=== PATIENT | male | born 1935 | race Hispanic/Latino ===

== ENCOUNTER 2017-07-17 21:16 | Emergency (ER) | payer MEDICARE, BC ==
--- NOTE | 2017-07-17 21:32 | C.PDOC ---
History Of Present Illness 82 y/o male brought in by ambulance for evaluation of head injury, sustained just prior to arrival. Patient was walking rapidly on the street, tripped and fell, striking his head and wounding his chin and knuckles. He denies any LOC, or dizziness prior to episode. Patient states he remembers the entire event. Denies any chest pain, SOB, nausea, vomiting, weakness, numbness, or visual changes. - HPI Time Seen by Provider: 07/17/17 21:32 Chief Complaint (Nursing): Trauma History Per: Patient History/Exam Limitations: no limitations Onset/Duration Of Symptoms: Mins Injury Occurred (Timing): Just Before Arrival Location Of Injury: Right: Hand, Left: Chest (small ecchimosis left chest wall) , Head (forehead lac, chin laceration), Shoulder, Anterior: Face (forehead, chin ), Hand Severity: Moderate Pain Scale Rating Of: 4 Recent travel outside of the [facility]: No Additional History Per: EMS - Fall Fall:Prior To Injury: Tripped Past Medical History Reviewed: Historical Data, Nursing Documentation, Vital Signs Vital Signs: Last Vital Signs Temp 98.5 F 07/17/17 21:28 Pulse 83 07/18/17 01:04 Resp 18 07/18/17 01:04 BP 140/67 07/18/17 01:04 Pulse Ox 99 07/18/17 01:55 - Medical History PMH: HTN, Hypercholesterolemia Other PMH: Prostate cancer Other Surgeries: Left arm surgery Family History: States: No Known Family Hx Review Of Systems Eyes: Negative for: Vision Change ENT: Positive for: Nose Pain Cardiovascular: Negative for: Chest Pain, Palpitations, Light Headedness Respiratory: Negative for: Shortness of Breath Gastrointestinal: Negative for: Nausea, Vomiting Genitourinary: Negative for: Hematuria Skin: Positive for: Lesions (to head), Bruising Neurological: Negative for: Weakness, Numbness, Confusion, Dizziness Psych: Negative for: Anxiety, Depression Physical Exam - Physical Exam Appears: Non-toxic Skin: Warm, Dry, Rash, Ecchymosis (left cheek) Head: Normacephalic, Swelling, Laceration (1.5 cm laceration to left forehead, 1.5 cm superficial semicircular laceration to left chin) Eye(s): bilateral: Normal Inspection, PERRL, EOMI Ear(s): Bilateral: Normal Nose: Epistaxis (from left nare), No Septal Hematoma, Other (bleeding left nare) Oral Mucosa: Moist Tongue: Normal Appearing Teeth: Normal Dentition, No Tender To Palpation, No Loose Throat: Other (swallowing blood) Neck: Normal ROM, Trachea Midline, No Midline Cervical Tenderness, No Paracervical Tenderness, Supple Chest: Symmetrical, Ecchymosis (small left chest, no crepitus ) Cardiovascular: Rhythm Irregular Respiratory: No Rales, No Rhonchi, No Wheezing Gastrointestinal/Abdominal: Soft, No Tenderness, No Distention Back: Normal Inspection, No CVA Tenderness, No Vertebral Tenderness Extremity: Normal ROM, No Tenderness, No Deformity, No Swelling, Other ( Abrasions over right knuckles, small abrasion left shoulder, left knee abrasion echimosis) Extremity: Bilateral: No Pedal Edema, Normal Color And Temperature Pulses: Left Radial: Normal, Right Radial: Normal, Left Dorsalis Pedis: Normal, Right Dorsalis Pedis: Normal Neurological/Psych: Oriented x3, Normal Speech, Normal Cranial Nerves, Cerebellar Signs (normal), Normal Motor, Normal Sensation, Other (No focal deficits) Gait: Steady ED Course And Treatment - Laboratory Results Result Diagrams: 07/17/17 22:03 07/17/17 22:03 ECG: Interpreted By Nv, Viewed By Nv ECG Rhythm: Atrial Fibrillation (82), R BBB, Nonspecific Changes (lahb) O2 Sat by Pulse Oximetry: 99 (RA) Pulse Ox Interpretation: Normal - Radiology CXR: Interpreted by Me, Viewed By Nv CXR Interpretation: No: Infiltrates, Fracture, Pnemothorax - CT Scan/US CT Head Other Rad Studies (CT/US): Read By Radiologist, Radiology Report Reviewed CT/US Interpretation: Name: NICOLÁS PRESCOTT Age: 82Years M Date: 07/17/2017. SSN: [id number] : 1935. Study: CT HEAD WO Requesting Physician: RADHA BRYAN. Images: 130. Addl Studies : Provided Clinical History: fall. CONFIDENTIALITY STATEMENT. This transmission is confidential and is intended to be a privileged communication. It is intended only for the use of the addressee. Access to this. message by anyone else is unauthorized. If you are not the intended recipient, any disclosure, copying, distribution or any action taken, or omitted to. be taken in reliance on it is prohibited and may be unlawful. If you received this communication in error, please notify us by telephone, so that return. of this document to us can be arranged. Page 1 of 2. EXAM: CT Head Without Intravenous Contrast. CLINICAL HISTORY: 82 years old, male; Injury or trauma; Fall; Initial encounter; Concussion / head injury. TECHNIQUE: Axial computed tomography images of the head/brain without intravenous contrast. All CT scans at. this facility use one or more dose reduction techniques, viz.: automated exposure control; ma/kV. adjustment per patient size (including targeted exams where dose is matched to indication; i.e. head);. or iterative reconstruction technique. COMPARISON: No relevant prior studies available. FINDINGS: Brain : There is mild diffuse cerebral atrophy present, consistent with this patient' s age. There is mild. diffuse heterogeneity of the white matter attenuation, consistent with chronic white matter ischemic. changes. Prominent dural calcification adjacent to the falx anteriorly. No hemorrhage. Ventricles: The ventricular system demonstrates mild diffuse compensatory enlargement. Bones/ joints: Multiple facial fractures are noted including left zygomatic arch, lateral orbital wall,. orbital floor and maxillary sinus wall fractures. Refer to the dedicated facial CT report for further. details. Soft tissues: Diffuse left facial soft tissue swelling and hematoma. Sinuses: There is hemorrhage in the left maxillary, ethmoid and sphenoid sinuses secondary to. hemorrhage. There is minimal mucoperiosteal thickening in the right maxillary sinus, consistent with. chronic sinusitis. Mastoid air cells: Unremarkable as visualized. No mastoid effusion. Nasal cavity/septum: There is fluid in the nasal cavity secondary to hemorrhage. IMPRESSION: Age-related atrophy and chronic white matter ischemic changes, with no evidence of an acute. intracranial abnormality. Paranasal sinus and nasal cavity fluid secondary to hemorrhage. Multiple facial fractures. Refer to the dedicated facial CT report for further details. Thank you for allowing us to participate in the care of your patient. Dictated and Authenticated by: Linda Huerta MD. 2017 11:40 PM Eastern Time ([place] & [place]) CT Orbits Other Rad Studies (CT/US): Read By Radiologist, Radiology Report Reviewed CT/US Interpretation: Name: NICOLÁS PRESCOTT Age: 82Years M Date: 07/17/2017. SSN: [id number] : 1935. Study: CT TEMPORAL BONES/IAC/ ORBITS/SELLA WORequesting Physician: RADHA BRYAN. Images: 498. Addl Studies: Provided Clinical History: fall. CONFIDENTIALITY STATEMENT. This transmission is confidential and is intended to be a privileged communication. It is intended only for the use of the addressee. Access to this. message by anyone else is unauthorized. If you are not the intended recipient, any disclosure, copying, distribution or any action taken, or omitted to. be taken in reliance on it is prohibited and may be unlawful. If you received this communication in error, please notify us by telephone, so that return. of this document to us can be arranged. Page 1 of 2. EXAM: CT Orbits Without Intravenous Contrast. CLINICAL HISTORY: 82 years old, male; Injury or trauma; Fall; Initial encounter; Abrasion; Head/scalp and forehead and. nose and orbit/periorbital and lip/oral cavity; Without loss of consciousness; Bilateral; Upper. TECHNIQUE: Axial computed tomography images of the orbits without intravenous contrast. All CT scans at this. facility use one or more dose reduction techniques, viz.: automated exposure control; ma/kV. adjustment per patient size (including targeted exams where dose is matched to indication; i.e. head);. or iterative reconstruction technique. Coronal and sagittal reformatted images were created and reviewed. COMPARISON: No relevant prior studies available. FINDINGS: Orbits: The globes are intact. Sinuses: There is hemorrhage in the left maxillary, ethmoid, and sphenoid sinuses. There is. hemorrhage in the nasal cavity. There is minimal mucoperiosteal thickening in the right maxillary. sinus, consistent with chronic sinusitis. Bones/joints: There are multiple left facial fractures including orbital floor, zygomatic arch, and lateral. orbital wall fractures. Left anterior, posterior and medial maxillary sinus wall fractures. Soft tissues: Right facial soft tissue swelling and hematoma. IMPRESSION: Multiple left facial fractures including orbital floor fracture. Facial soft tissue swelling and hematoma. Thank you for allowing us to participate in the care of your patient. Dictated and Authenticated by: Linda Huerta MD. 2017 11:40 PM Eastern Time ([place]). 1:10AM [place] [facility] [place]. Pt is stable, aaox3 and was able to ambulate with some assistance. vitals stable CT C-Spine Other Rad Studies (CT/US): Read By Radiologist, Radiology Report Reviewed CT/US Interpretation: Name: NICOLÁS PRESCOTT Age: 82Years M Date: 07/17/2017. SSN: [id number] : 1935. Study: CT SPINE CERVICAL WO Requesting Physician: RADHA BRYNA. Images: 613. Addl Studies: Provided Clinical History: fall. CONFIDENTIALITY STATEMENT. This transmission is confidential and is intended to be a privileged communication. It is intended only for the use of the addressee. Access to this. message by anyone else is unauthorized. If you are not the intended recipient, any disclosure, copying, distribution or any action taken, or omitted to. be taken in reliance on it is prohibited and may be unlawful. If you received this communication in error, please notify us by telephone, so that return. of this document to us can be arranged. Page 1 of 2. EXAM: CT Cervical Spine Without Intravenous Contrast. CLINICAL HISTORY: 82 years old, male; Injury or trauma; Fall; Initial encounter; Sprain or strain, cervical ligaments. TECHNIQUE: Axial computed tomography images of the cervical spine without intravenous contrast. All CT scans. at this facility use one or more dose reduction techniques, viz.: automated exposure control; ma/kV. adjustment per patient size (including targeted exams where dose is matched to indication; i.e. head);. or iterative reconstruction technique. Coronal and sagittal reformatted images were created and reviewed. COMPARISON: No relevant prior studies available. FINDINGS: There is no evidence of acute fracture. There is no evidence of malalignment or dislocation. There are degenerative changes at multiple levels including mild disc space narrowing, endplate. spurs and uncovertebral hypertrophy. Facet arthropathy is noted at multiple levels. The combination. of findings results in mild spinal canal stenosis and moderate bilateral neuroforaminal narrowing. The facet joints are intact. The pharyngeal, hypopharyngeal, and laryngeal structures are unremarkable. There is no evidence of lymphadenopathy. The visualized portions of the lung apices are normal. Fluid in the visualized paranasal sinuses and nasal cavity secondary to hemorrhage. IMPRESSION: No acute fracture or dislocation. Cervical spondylosis. Paranasal sinus and nasal cavity fluid secondary to hemorrhage. Refer to the dedicated facial CT for. further details. Thank you for allowing us to participate in the care of your patient. Dictated and Authenticated by: Linda Huerta MD. 07/17/2017 11:46 PM Eastern Time ([place]) Progress Note: Initiated work-up including labs, EKG, and CT scans of the head, c-spine, and orbits. 10:14 pm placed a 7.5 rhinocort left nare without difficulty. pt tolerated the procedure well. Lacerations repaired without difficulty. CT demonstrates facial fractures. Discussed results with patient. Will arrange for transfer for OMF Laceration - Laceration Repair left forehead Wound Length (In cm): 1.5 Description Of Wound: Linear Wound Cleansed With: Sterile Saline Wound Examination: Irrigated With Saline, No FB With Wound Exploration Wound Closure: Suture (x3) Suture Technique And Material Used: Prolene (4:0) Wound Complexity: Simple chin Wound Length (In cm): 1.5 Description Of Wound: Irregular (circular) Wound Cleansed With: Sterile Saline Wound Examination: Irrigated With Saline, No FB With Wound Exploration Wound Closure: Suture (x3) Suture Technique And Material Used: Prolene (4:0) Wound Complexity: Simple Disposition Counseled Patient/Family Regarding: Studies Performed, Diagnosis - Disposition Disposition: Trans to Other Acute Care Hosp Disposition Time: 21:32 Condition: GUARDED Forms: [employer] (Kiswahili) - Clinical Impression Clinical Impression: Laceration - injury, Facial bone fracture Critical Care Time - Critical Care Note Total Time (in mins): 30 Documented critical care: time excludes all time spent performing seperately billable procedures. - Scribe Statement The provider has reviewed the documentation as recorded by the Scribe (Manuela Holman) Provider Attestation: All medical record entries made by the Scribe were at my direction and personally dictated by me. I have reviewed the chart and agree that the record accurately reflects my personal performance of the history, physical exam, medical decision making, and the department course for this patient. I have also personally directed, reviewed, and agree with the discharge instructions and disposition.
[2017-07-17 22:13] LABS: BASO % 0.7 % (0.0-2.0); EOS % 0.9 % (0.0-4.0); HEMOGLOBIN 12.4 g/dL (12.0-18.0); LYMPH # 0.9 K/uL (1.0-4.3); LYMPH % 17.3 % (20.0-40.0); MEAN CELL VOLUME 90.8 fL (80.0-94.0); MEAN CORPUSCULAR HEMOGLOBIN 31.4 pg (27.0-31.0); MEAN CORPUSCULAR HGB CONC 34.6 g/dL (33.0-37.0); MEAN PLATELET VOLUME 7.9 fL (7.2-11.7); MONO # 0.3 K/uL (0.0-0.8); NEUT # 4.1 K/uL (1.8-7.0); NEUT % 76.1 % (50.0-75.0); RBC 3.94 Mil/uL (4.40-5.90); RED CELL DISTRIBUTION WIDTH 13.8 % (11.5-14.5); WHITE BLOOD COUNT 5.4 K/uL (4.8-10.8)
[2017-07-17 22:21] LABS: INR 1.1; PROTHROMBIN TIME 11.9 SECONDS (9.7-12.2)
[2017-07-17 22:27] LABS: ALB/GLOB RATIO 1.4 (1.0-2.1); ALBUMIN 3.5 g/dL (3.5-5.0); ALT/SGPT 24 U/L (21-72); AST/SGOT 25 U/L (17-59); BLOOD UREA NITROGEN 19 mg/dL (9-20); CALCIUM 8.6 mg/dl (8.6-10.4); GFR AFRICAN-AMERICAN > 60; GFR NON-AFRICAN AMERICAN > 60
--- NOTE | 2017-07-17 23:40 | CT ---
EXAM: CT Orbits Without Intravenous Contrast CLINICAL HISTORY: 82 years old, male; Injury or trauma; Fall; Initial encounter; Abrasion; Head/scalp and forehead and nose and orbit/periorbital and lip/oral cavity; Without loss of consciousness; Bilateral; Upper TECHNIQUE: Axial computed tomography images of the orbits without intravenous contrast. All CT scans at this facility use one or more dose reduction techniques, viz.: automated exposure control; ma/kV adjustment per patient size (including targeted exams where dose is matched to indication; i.e. head); or iterative reconstruction technique. Coronal and sagittal reformatted images were created and reviewed. COMPARISON: No relevant prior studies available. FINDINGS: Orbits: The globes are intact. Sinuses: There is hemorrhage in the left maxillary, ethmoid, and sphenoid sinuses. There is hemorrhage in the nasal cavity. There is minimal mucoperiosteal thickening in the right maxillary sinus, consistent with chronic sinusitis. Bones/joints: There are multiple left facial fractures including orbital floor, zygomatic arch, and lateral orbital wall fractures. Left anterior, posterior and medial maxillary sinus wall fractures. Soft tissues: Right facial soft tissue swelling and hematoma. IMPRESSION: Multiple left facial fractures including orbital floor fracture. Facial soft tissue swelling and hematoma.
--- NOTE | 2017-07-17 23:41 | CT ---
EXAM: CT Head Without Intravenous Contrast CLINICAL HISTORY: 82 years old, male; Injury or trauma; Fall; Initial encounter; Concussion / head injury TECHNIQUE: Axial computed tomography images of the head/brain without intravenous contrast. All CT scans at this facility use one or more dose reduction techniques, viz.: automated exposure control; ma/kV adjustment per patient size (including targeted exams where dose is matched to indication; i.e. head); or iterative reconstruction technique. COMPARISON: No relevant prior studies available. FINDINGS: Brain: There is mild diffuse cerebral atrophy present, consistent with this patient's age. There is mild diffuse heterogeneity of the white matter attenuation, consistent with chronic white matter ischemic changes. Prominent dural calcification adjacent to the falx anteriorly. No hemorrhage. Ventricles: The ventricular system demonstrates mild diffuse compensatory enlargement. Bones/joints: Multiple facial fractures are noted including left zygomatic arch, lateral orbital wall, orbital floor and maxillary sinus wall fractures. Refer to the dedicated facial CT report for further details. Soft tissues: Diffuse left facial soft tissue swelling and hematoma. Sinuses: There is hemorrhage in the left maxillary, ethmoid and sphenoid sinuses secondary to hemorrhage. There is minimal mucoperiosteal thickening in the right maxillary sinus, consistent with chronic sinusitis. Mastoid air cells: Unremarkable as visualized. No mastoid effusion. Nasal cavity/septum: There is fluid in the nasal cavity secondary to hemorrhage. IMPRESSION: Age-related atrophy and chronic white matter ischemic changes, with no evidence of an acute intracranial abnormality. Paranasal sinus and nasal cavity fluid secondary to hemorrhage. Multiple facial fractures. Refer to the dedicated facial CT report for further details.
--- NOTE | 2017-07-17 23:46 | CT ---
EXAM: CT Cervical Spine Without Intravenous Contrast CLINICAL HISTORY: 82 years old, male; Injury or trauma; Fall; Initial encounter; Sprain or strain, cervical ligaments TECHNIQUE: Axial computed tomography images of the cervical spine without intravenous contrast. All CT scans at this facility use one or more dose reduction techniques, viz.: automated exposure control; ma/kV adjustment per patient size (including targeted exams where dose is matched to indication; i.e. head); or iterative reconstruction technique. Coronal and sagittal reformatted images were created and reviewed. COMPARISON: No relevant prior studies available. FINDINGS: There is no evidence of acute fracture. There is no evidence of malalignment or dislocation. There are degenerative changes at multiple levels including mild disc space narrowing, endplate spurs and uncovertebral hypertrophy. Facet arthropathy is noted at multiple levels. The combination of findings results in mild spinal canal stenosis and moderate bilateral neuroforaminal narrowing. The facet joints are intact. The pharyngeal, hypopharyngeal, and laryngeal structures are unremarkable. There is no evidence of lymphadenopathy. The visualized portions of the lung apices are normal. Fluid in the visualized paranasal sinuses and nasal cavity secondary to hemorrhage. IMPRESSION: No acute fracture or dislocation. Cervical spondylosis. Paranasal sinus and nasal cavity fluid secondary to hemorrhage. Refer to the dedicated facial CT for further details.
[2017-07-18] MEDS ORDERED: ceFAZolin 1 gm in NS 1 GM/100 ML BAG IVPB ONE ×2 (00:31→00:32)
[2017-07-18] MEDS ORDERED: Lidocaine 2% w Epi 1:100,000 Inj IJ ONE (00:47)
[2017-07-18 01:39] LABS: URINE BILIRUBIN NEGATIVE (NEGATIVE); URINE BLOOD NEGATIVE (NEGATIVE); URINE CLARITY Clear (Clear); URINE COLOR Yellow (YELLOW); URINE GLUCOSE (UA) NORMAL (Normal); URINE LEUKOCYTE ESTERASE NEG Leu/uL (Negative); URINE PROTEIN NEGATIVE (NEGATIVE); URINE UROBILINOGEN NORMAL mg/dL (0.2-1.0)
[2017-07-18] MEDS ORDERED: Bacitracin 500 Units/gm Oint Foilpak UD ONE (01:54)
[2017-07-18] MEDS ORDERED: Tetanus/Diphtheria Toxoids 0.5 ml Syringe IM ONE (01:59)
[2017-07-18] MEDS ORDERED: Tdap Vaccine 0.5 ml Vial (10-64 yrs) IM ONE (02:00)
[2017-07-18 02:35] VITALS: BP 145/74; PULSE 72; RESP 21; TEMP 97.8
[2017-07-18 03:58] VITALS: O2SAT 99
--- NOTE | 2017-07-18 08:41 | RAD ---
PROCEDURE: CHEST RADIOGRAPH, 1 VIEW HISTORY: fall COMPARISON: 01/19/2013. FINDINGS: LUNGS: The lungs are well inflated and clear. PLEURA: No pneumothorax or pleural fluid seen. CARDIOVASCULAR: The heart is normal in size. Atherosclerotic aortic arch calcifications are present. OSSEOUS STRUCTURES: No significant abnormalities. VISUALIZED UPPER ABDOMEN: Normal. OTHER FINDINGS: None. IMPRESSION: No acute finding.
--- NOTE | 2017-07-19 02:10 | CARD ---
APPROVED REPORT EKG Measurement Heart [id number] <Conclusion> Atrial fibrillation Right bundle branch block Left anterior fascicular block Bifascicular block Septal infarct, age undetermined Lateral infarct, age undetermined Abnormal ECG
== END 2017-07-18 03:00 | disposition short-term general hospital (02) ==
LOC: C.ER 21:16
DX: S01.81XA Laceration without foreign body of other part of head, initial encounter (principal); S02.32XA Fracture of orbital floor, left side, initial encounter for closed fracture; W01.0XXA Fall on same level from slipping, tripping and stumbling without subsequent striking against object, initial encounter; Y93.01 Activity, walking, marching and hiking; Y92.410 Unspecified street and highway as the place of occurrence of the external cause; E78.00 Pure hypercholesterolemia, unspecified; I10 Essential (primary) hypertension; Z23 Encounter for immunization
CPT/HCPCS: 12013; 30901; 70450; 70480; 71045; 72125; 80053; 81001; 85025; 85610; 85730; 86850; 86900; 90471; 90715; 93005; 96365; 96375; 96376; 99291; J0690; J2270; J2405

== ENCOUNTER 2017-07-20 11:29 | Inpatient (IN) | payer MEDICARE, BC ==
[2017-07-20] MEDS: Sodium Chloride 0.9% 1,000 ML IV SCH ×2 (12:09→22:16)
[2017-07-20 12:13] LABS: BASO # 0.1 K/uL (0.0-0.2); BASO % 0.8 % (0.0-2.0); EOS # 0.3 K/uL (0.0-0.7); EOS % 3.3 % (0.0-4.0); LYMPH # 1.3 K/uL (1.0-4.3); LYMPH % 16.4 % (20.0-40.0); MEAN CELL VOLUME 90.3 fL (80.0-94.0); MEAN CORPUSCULAR HEMOGLOBIN 31.8 pg (27.0-31.0); MEAN CORPUSCULAR HGB CONC 35.2 g/dL (33.0-37.0); MEAN PLATELET VOLUME 7.6 fL (7.2-11.7); MONO # 0.6 K/uL (0.0-0.8); MONO % 7.3 % (0.0-10.0); NEUT # 5.6 K/uL (1.8-7.0); NEUT % 72.2 % (50.0-75.0); RBC 3.07 Mil/uL (4.40-5.90); RED CELL DISTRIBUTION WIDTH 13.7 % (11.5-14.5); WHITE BLOOD COUNT 7.8 K/uL (4.8-10.8)
[2017-07-20 12:18] LABS: HEMOGLOBIN 9.7 g/dL (12.0-18.0)
--- NOTE | 2017-07-20 12:26 | RAD ---
Chest x-ray single frontal view History: Chest pain. Comparison: 07/18/2017 Findings: Biapical pleural thickening with upper lobe granulomatous changes. Hyperinflation suggestive for COPD and or emphysematous changes. Mild venous congestion. Right hilar prominence. Patchy increased markings at the left lung base. Calcification at the aortic knob. Degenerative changes in the spine. Impression: Biapical pleural thickening with upper lobe granulomatous changes. Hyperinflation suggestive for COPD and or emphysematous changes. Mild venous congestion. Right hilar prominence. Patchy increased markings at the left lung base. Calcification at the aortic knob.
[2017-07-20 12:36] LABS: ALB/GLOB RATIO 1.2 (1.0-2.1); ALT/SGPT 27 U/L (21-72); AST/SGOT 31 U/L (17-59); BLOOD UREA NITROGEN 22 mg/dL (9-20); CALCIUM 8.6 mg/dl (8.6-10.4); GFR AFRICAN-AMERICAN > 60; GFR NON-AFRICAN AMERICAN > 60
--- NOTE | 2017-07-20 14:53 | CT ---
PROCEDURE: CT HEAD WITHOUT CONTRAST. HISTORY: weakness - h/o multiple facial fractures 3 days ag COMPARISON: 07/17/2017 TECHNIQUE: Axial computed tomography images were obtained through the head/brain without intravenous contrast. Radiation dose: Total exam DLP = 435 mGy-cm. This CT exam was performed using one or more of the following dose reduction techniques: Automated exposure control, adjustment of the mA and/or kV according to patient size, and/or use of iterative reconstruction technique. FINDINGS: HEMORRHAGE: No intracranial hemorrhage. BRAIN: No mass effect or edema. Scattered focal lucencies in the subcortical and periventricular white matter suggestive for chronic microvascular ischemic change. Mild diffuse cerebral atrophy present. Prominent dural calcification adjacent to the falx anteriorly. Left basal ganglia lacunar infarct. Streak artifact limits evaluation of the posterior fossa. VENTRICLES: Mild compensatory enlargement. CALVARIUM: See below. PARANASAL SINUSES: Persistent dense hemorrhage in the visualized left maxillary sinus. Mucosal thickening and opacification of the ethmoid air cells and frontal sinus. MASTOID AIR CELLS: Unremarkable as visualized. No inflammatory changes. OTHER FINDINGS: Again identified are multiple facial fractures including the left zygomatic arch, lateral wall of the left orbit, orbital floor, and maxillary sinus wall fractures. Intracranial arterial calcifications. IMPRESSION: Persistent multiple left sided facial fractures. Chronic microvascular ischemic change. Persistent hemorrhage within the left maxillary sinus. Mild diffuse cerebral atrophy present. Prominent dural calcification adjacent to the falx anteriorly. Left basal ganglia lacunar infarct. Streak artifact limits evaluation of the posterior fossa. If symptoms persists, correlation with MRI may be helpful.
[2017-07-20 15:09] LABS: URINE BILIRUBIN NEGATIVE (NEGATIVE); URINE BLOOD 1+ (NEGATIVE); URINE CLARITY Clear (Clear); URINE COLOR Yellow (YELLOW); URINE GLUCOSE (UA) NORMAL (Normal); URINE LEUKOCYTE ESTERASE NEG Leu/uL (Negative); URINE PROTEIN 1+ mg/dL (NEGATIVE); URINE UROBILINOGEN NORMAL mg/dL (0.2-1.0)
--- NOTE | 2017-07-20 15:30 | C.PDOC ---
History Of Present Illness 82 year old male presents to ED for evaluation of generalized weakness for the past few days. Pt was seen here 3 days ago s/p fall and was transferred to [facility] for multiple facial fractures. Pt was discharged from hospital yesterday, denies any additional falls. Pt states he was notified by phone after his discharge that he may have a right wrist fracture. Otherwise, denies fever, chest pain, shortness of breath, cough, or any other complaints at this time. Chief Complaint (Nursing): Weakness/Neurological Deficit History Per: Patient History/Exam Limitations: no limitations Onset/Duration Of Symptoms: Days Current Symptoms Are (Timing): Still Present Past Medical History Reviewed: Historical Data, Nursing Documentation, Vital Signs Vital Signs: Last Vital Signs Temp 96 F L 07/20/17 11:39 Pulse 98 H 07/20/17 16:11 Resp 18 07/20/17 16:11 BP 149/91 H 07/20/17 16:11 Pulse Ox 98 07/20/17 16:11 - Medical History PMH: Anemia, Cardia Arrhythmia, HTN, Hypercholesterolemia Family History: States: Unknown Family Hx - Social History Hx Alcohol Use: No Hx Substance Use: No - Immunization History Hx Tetanus Toxoid Vaccination: No Hx Influenza Vaccination: Yes Hx Pneumococcal Vaccination: No Review Of Systems Except As Marked, All Systems Reviewed And Found Negative. Constitutional: Positive for: Weakness. Negative for: Fever, Chills Cardiovascular: Negative for: Chest Pain, Palpitations Respiratory: Negative for: Cough, Shortness of Breath Neurological: Negative for: Headache, Dizziness Physical Exam - Physical Exam Appears: Non-toxic, No Acute Distress Skin: Warm, Dry, Ecchymosis (multiple areas of ecchymosis including bilateral wrists, shoulders, left side of face and neck), Other (laceration with sutures in place on chin and left forehead) Head: Atraumatic, Normacephalic Eye(s): bilateral: Normal Inspection Nose: Other (nasal packing in left nare with dry blood) Oral Mucosa: Moist Neck: Normal ROM, Supple Cardiovascular: Rhythm Irregular (irregularly irregular) Respiratory: Normal Breath Sounds, No Rales, No Rhonchi, No Wheezing Gastrointestinal/Abdominal: Soft, No Tenderness Extremity: No Normal ROM (slight decreased ROM of right wrist), Capillary Refill (less than 2 seconds), No Deformity, Swelling (mild swelling to right wrist) Neurological/Psych: Oriented x3, Normal Speech ED Course And Treatment - Laboratory Results Result Diagrams: 07/20/17 12:16 07/20/17 11:55 ECG: Interpreted By Me, Viewed By Me ECG Rhythm: Atrial Fibrillation Interpretation Of ECG: bifascicular block, left axis deviation Rate From EC (bpm) O2 Sat by Pulse Oximetry: 100 (RA) Pulse Ox Interpretation: Normal Medical Decision Making Medical Decision Making: Blood work, UA, CXR, EKG, head CT, right wrist x-ray was ordered and reviewed. Pt was given IV fluids. Case discussed with Dr. Craig, covering for Dr. Jose Harvey. Spoke with Dr. Madsen who agrees upon admission under his service. Disposition - Disposition Disposition Time: 13:18 Condition: GUARDED - Clinical Impression Clinical Impression: Elevated troponin, Weakness - Scribe Statement The provider has reviewed the documentation as recorded by the Scribe Girish Harvey All medical record entries made by the Scribe were at my direction and personally dictated by me. I have reviewed the chart and agree that the record accurately reflects my personal performance of the history, physical exam, medical decision making, and the department course for this patient. I have also personally directed, reviewed, and agree with the discharge instructions and disposition.
--- NOTE | 2017-07-20 16:39 | RAD ---
Right wrist three views History: Injury. Comparison: None available. Findings: Widening of the scapholunate interval measuring 3.6 millimeters which may represent underlying scaphoid ligament tear and or dissociation. Prominent narrowing of the radiocarpal joint space. On the frontal view, there is a vertically-oriented lucency along the ulnar aspect of the distal radius at the articular surface which may represent osseous injury. Additional productive change along the articular surface of the distal radius at its mid to ulnar aspect. Productive change along the radial cortex of the distal radius. Diffuse osteopenia. Prominent sacrotuberous notch along the radial aspect of the mid scaphoid waist. Prominent degenerative changes noted at the 1st carpometacarpal joint space. Bony productive change at the base of the 5th metacarpal bone which may represent chronic osseous injury. Additional degenerative changes noted at the articulation of the 5th metacarpal bone and adjacent hamate. Productive change along the dorsal aspect of the triquetral bone, nonspecific. Impression: Widening of the scapholunate interval measuring 3.6 millimeters which may represent underlying scaphoid ligament tear and or dissociation. Prominent narrowing of the radiocarpal joint space. On the frontal view, there is a vertically-oriented lucency along the ulnar aspect of the distal radius at the articular surface which may represent osseous injury. Additional productive change along the articular surface of the distal radius at its mid to ulnar aspect. Productive change along the radial cortex of the distal radius. Diffuse osteopenia. Prominent sacrotuberous notch along the radial aspect of the mid scaphoid waist. Prominent degenerative changes noted at the 1st carpometacarpal joint space. Bony productive change at the base of the 5th metacarpal bone which may represent chronic osseous injury. Additional degenerative changes noted at the articulation of the 5th metacarpal bone and adjacent hamate. Productive change along the dorsal aspect of the triquetral bone, nonspecific. If pain persists, consider correlation with CT or MR to exclude osseous injury and/or internal derangement.
[2017-07-21] MEDS ORDERED: Heparin25000 units/250ml 1/2NS 25,000 UNITS/250 ML BAG IV PRN (02:39)
[2017-07-21] MEDS: Sodium Chloride 0.9% 1,000 ML IV SCH ×2 (08:00→18:32)
--- NOTE | 2017-07-21 09:52 | CP.PCM.PN ---
Subjective - Date & Time of Evaluation Date of Evaluation: 07/21/17 Time of Evaluation: 09:45 - Subjective Subjective: Progress note. Attending: Dr. Madsen Pt seen and examined at bedside. No acute distress. No events overnight. No fevers, chills, vomiting, diarrhea, cp, palpitations. Cardio following. Objective - Vital Signs/Intake and Output Vital Signs (last 24 hours): Temp Pulse Resp BP Pulse Ox 98.8 F 87 18 154/84 H 96 07/21/17 07:30 07/21/17 07:30 07/21/17 07:30 07/21/17 07:30 07/21/17 07:30 - Medications Medications: Current Medications Carvedilol (Coreg) 12.5 mg PO DAILY [facility] Enalapril Maleate (Vasotec) 15 mg PO DAILY [facility] Home Med (Abiraterone Acetate [Zytiga]) 750 mg PO DAILY [facility] Sodium Chloride (Sodium Chloride 0.9%) 1,000 mls @ 100 mls/hr IV .Q10H [facility] Last Admin: 07/20/17 22:16 Dose: 100 mls/hr Pantoprazole Sodium (Protonix Inj) 40 mg IVP DAILY [facility] Rosuvastatin Calcium (Crestor) 5 mg PO HS [facility] Tamsulosin HCl (Flomax) 0.4 mg PO DAILY [facility] Terazosin HCl (Hytrin) 1 mg PO DAILY [facility] - Labs Labs: 07/20/17 12:16 07/20/17 11:55 APTT 31 SECONDS (21-34) 07/21/17 03:09 - Constitutional Appears: Non-toxic, No Acute Distress - Head Exam Head Exam: absent: ATRAUMATIC, NORMAL INSPECTION - Eye Exam Eye Exam: EOMI - Neck Exam Neck Exam: absent: Normal Inspection - Respiratory Exam Respiratory Exam: NORMAL BREATHING PATTERN. absent: Respiratory Distress - Cardiovascular Exam Cardiovascular Exam: Irregular Rhythm, +S1, +S2 - GI/Abdominal Exam GI & Abdominal Exam: Soft, Normal Bowel Sounds. absent: Tenderness - Extremities Exam Extremities Exam: Full ROM. absent: Normal Inspection - Back Exam Back Exam: NORMAL INSPECTION - Neurological Exam Neurological Exam: Alert, Awake, Oriented x3 - Psychiatric Exam Psychiatric exam: Normal Affect, Normal Mood - Skin Skin Exam: Dry, Intact, Warm. absent: Normal Color Assessment and Plan - Assessment and Plan (Free Text) Assessment: This is an 82 yo male with 1. elevated troponin/NSTEMI -cardiology consult. recs appreciated. -coreg 6.25 mg po bid -enalapril 15 mg po daily -crestor 5 mg po hs 2. Hx of atrial fibrillation -coreg 6.25 mg po bid -ekg -echo pending -cardio eval. Dr. Dominguez. recs appreciated. 3. wrist injury/fall -PT evaluation pending 4. anemia -stool occult blood -ldh, haptoglobin -retic count -iron studies 5. GI/DVT ppx -scds -protonix 40 mg iv daily discussed with Dr. Madsen
[2017-07-21] MEDS ORDERED: Enoxaparin 40 mg Syringe SC SCH (10:00)
[2017-07-21] MEDS ORDERED: ABIRATERONE ACETATE PO SCH (10:00)
[2017-07-21 11:40] LABS: BASO # 0.1 K/uL (0.0-0.2); BASO % 0.9 % (0.0-2.0); EOS # 0.3 K/uL (0.0-0.7); EOS % 3.9 % (0.0-4.0); HEMOGLOBIN 8.9 g/dL (12.0-18.0); LYMPH # 1.3 K/uL (1.0-4.3); LYMPH % 19.9 % (20.0-40.0); MEAN CELL VOLUME 90.5 fL (80.0-94.0); MEAN CORPUSCULAR HEMOGLOBIN 31.8 pg (27.0-31.0); MEAN CORPUSCULAR HGB CONC 35.2 g/dL (33.0-37.0); MEAN PLATELET VOLUME 8.4 fL (7.2-11.7); MONO # 0.5 K/uL (0.0-0.8); MONO % 7.1 % (0.0-10.0); NEUT # 4.6 K/uL (1.8-7.0); NEUT % 68.2 % (50.0-75.0); NRBC % 0.1 % (0.0-2.0); RBC 2.81 Mil/uL (4.40-5.90); RED CELL DISTRIBUTION WIDTH 13.9 % (11.5-14.5); WHITE BLOOD COUNT 6.7 K/uL (4.8-10.8)
[2017-07-21 11:48] LABS: INR 1.2; PROTHROMBIN TIME 13.5 SECONDS (9.7-12.2)
[2017-07-21 11:55] LABS: IRON 32 ug/dL (49-181)
[2017-07-21 12:04] LABS: ALB/GLOB RATIO 1.1 (1.0-2.1); ALBUMIN 2.7 g/dL (3.5-5.0); ALT/SGPT 30 U/L (21-72); AST/SGOT 30 U/L (17-59); BLOOD UREA NITROGEN 17 mg/dL (9-20); CALCIUM 8.1 mg/dl (8.6-10.4); GFR AFRICAN-AMERICAN > 60; GFR NON-AFRICAN AMERICAN > 60
[2017-07-21 12:06] LABS: % IRON SATURATION 16 (20-55); TOTAL IRON BINDING CAPACITY 205 ug/dL (250-450)
[2017-07-21 12:32] LABS: FERRITIN 92.1 ng/mL
[2017-07-21] MEDS: Potassium Chloride 20 mEq ER Tab PO SCH (14:57)
--- NOTE | 2017-07-21 14:57 | CP.PCM.CON ---
History of Present Illness - History of Present Illness History of Present Illness: Orthopedic consultation Dr. Rosenthal 82M complains of right wrist pain since fall on 07/17 pm. He was transferred to [facility] for evaluation of facial injuries. Xrays were taken at [facility] and he was initially told he did not have a fracture, then was called and he was told me may have fracture, so he came to ER. Found to have elevated troponin on admit. Prior right wrist fx 1990 treated in cast for 12 weeks. RHD. Denies numbness/ tingling. Denies CP/SOB/dizziness/n/v. Patient tolerated PT well today, no dizziness. Patient has 24 stairs, lives alone, does not use assistive device for ambulation. Review of Systems - Review of Systems All systems: reviewed and no additional remarkable complaints except - Constitutional Additional comments: no fever/chills - Cardiovascular Cardiovascular: As Per HPI - Respiratory Respiratory: As Per HPI - Gastrointestinal Gastrointestinal: As Per HPI - Musculoskeletal Musculoskeletal: As Per HPI - Integumentary Integumentary: As Per HPI - Neurological Neurological: As Per HPI - Hematologic/Lymphatic Hematologic: As Per HPI Past Patient History - Infectious Disease Hx of Infectious Diseases: None - Past Medical History & Family History Past Medical History?: Yes Past Family History: Reviewed and not pertinent - Past Social History Smoking Status: Never Smoked - CARDIAC Hx Cardiac Disorders: Yes Hx Hypercholesterolemia: Yes Hx Hypertension: Yes - PULMONARY Hx Respiratory Disorders: No - NEUROLOGICAL Hx Neurological Disorder: No - HEENT Hx HEENT Problems: No - RENAL Hx Chronic Kidney Disease: No - ENDOCRINE/METABOLIC Hx Endocrine Disorders: No - HEMATOLOGICAL/ONCOLOGICAL Hx Blood Disorders: Yes Hx Anemia: Yes - INTEGUMENTARY Hx Dermatological Problems: No - MUSCULOSKELETAL/RHEUMATOLOGICAL Hx Musculoskeletal Disorders: No Hx Falls: Yes - GASTROINTESTINAL Hx Gastrointestinal Disorders: No - GENITOURINARY/GYNECOLOGICAL Hx Genitourinary Disorders: Yes Hx Prostate Cancer: Yes - PSYCHIATRIC Hx Psychophysiologic Disorder: No Hx Substance Use: No - SURGICAL HISTORY Hx Surgeries: Yes Other/Comment: left arm tumor. ADNOIDECTOMY - ANESTHESIA Hx Anesthesia: Yes Hx Anesthesia Reactions: No Meds Allergies/Adverse Reactions: Allergies Allergy/AdvReac Type Severity Reaction Status Date / Time No Known Allergies Allergy Verified 07/20/17 11:39 - Medications Medications: Current Medications Carvedilol (Coreg) 6.25 mg PO BID [facility] Enalapril Maleate (Vasotec) 15 mg PO DAILY [facility] Last Admin: 07/21/17 10:52 Dose: 15 mg Sodium Chloride (Sodium Chloride 0.9%) 1,000 mls @ 100 mls/hr IV .Q10H [facility] Last Admin: 07/21/17 08:00 Dose: Not Given Pantoprazole Sodium (Protonix Inj) 40 mg IVP DAILY [facility] Last Admin: 07/21/17 10:51 Dose: 40 mg Pneumococcal Polyvalent Vaccine (Pneumovax 23 Vaccine) 0.5 ml IM .ONCE ONE Stop: 07/23/17 12:01 Potassium Chloride (K-Dur 20 Meq Er Tab) 20 meq PO DAILY [facility] Rosuvastatin Calcium (Crestor) 5 mg PO HS [facility] Tamsulosin HCl (Flomax) 0.4 mg PO DAILY [facility] Last Admin: 07/21/17 10:50 Dose: 0.4 mg Terazosin HCl (Hytrin) 1 mg PO DAILY [facility] Last Admin: 07/21/17 10:48 Dose: 1 mg Physical Exam - Constitutional Appears: Well, No Acute Distress - Head Exam Additional comments: severe swelling and bruising to left side of face and neck - Eye Exam Eye Exam: Periorbital swelling, Periorbital tenderness - Neck Exam Neck exam: Positive for: Full Rom, Normal Inspection - Respiratory Exam Respiratory Exam: NORMAL BREATHING PATTERN - Cardiovascular Exam Additional comments: +radial pulse - Expanded Upper Extremities Exam Right Forearm Wrist exam: ecchymosis, full ROM (non tender to SL ), laceration, swelling, tenderness Neuro motor exam: finger 2-5 abduction intact, thumb abduction, thumb IP flexion intact, thumb opposition intact, wrist extension intact Neurosensory exam: median nerve intact, radial nerve intact, ulnar nerve intact Vascular exam: radial pulse Results - Vital Signs Recent Vital Signs: Last Vital Signs Temp 98.8 F 07/21/17 07:30 Pulse 92 H 07/21/17 08:00 Resp 18 07/21/17 07:30 BP 154/84 H 07/21/17 10:53 Pulse Ox 96 07/21/17 07:30 - Labs Result Diagrams: 07/21/17 11:33 07/21/17 11:33 Labs: Laboratory Results - last 24 hr 07/20/17 07/21/17 07/21/17 14:48 01:38 03:09 WBC RBC Hgb Hct MCV MCH MCHC RDW Plt Count MPV Neut % (Auto) Lymph % (Auto) [place] % (Auto) Eos % (Auto) Baso % (Auto) Neut # (Auto) Lymph # (Auto) [place] # (Auto) Eos # (Auto) Baso # (Auto) Retic Count Haptoglobin PT INR APTT 31 Sodium Potassium Chloride Carbon Dioxide Anion Gap BUN Creatinine Est GFR ( Amer) Est GFR (Non-Af Amer) Random Glucose Calcium Iron TIBC % Saturation Ferritin Total Bilirubin AST ALT Alkaline Phosphatase Lactate Dehydrogenase Total Creatine Kinase Troponin I 0.1590 H* Total Protein Albumin Globulin Albumin/Globulin Ratio Urine Color Yellow Urine Clarity Clear Urine pH 5.0 Ur Specific [place] 1.023 Urine Protein 1+ H Urine Glucose (UA) Normal Urine Ketones 2+ H Urine Blood 1+ H Urine Nitrate Negative Urine Bilirubin Negative Urine Urobilinogen Normal Ur Leukocyte Esterase Neg Urine WBC (Auto) 1 Urine RBC (Auto) 7 H 07/21/17 07/21/17 07/21/17 11:32 11:33 11:33 WBC 6.7 RBC 2.81 L Hgb 8.9 L Hct 25.4 L MCV 90.5 MCH 31.8 H MCHC 35.2 RDW 13.9 Plt Count 128 L MPV 8.4 Neut % (Auto) 68.2 Lymph % (Auto) 19.9 L [place] % (Auto) 7.1 Eos % (Auto) 3.9 Baso % (Auto) 0.9 Neut # (Auto) 4.6 Lymph # (Auto) 1.3 [place] # (Auto) 0.5 Eos # (Auto) 0.3 Baso # (Auto) 0.1 Retic Count Haptoglobin PT 13.5 H INR 1.2 APTT Sodium 148 Potassium 3.0 L Chloride 113 H Carbon Dioxide 26 Anion Gap 13 BUN 17 Creatinine 0.8 Est GFR ( Amer) > 60 Est GFR (Non-Af Amer) > 60 Random Glucose 154 H Calcium 8.1 L Iron TIBC % Saturation Ferritin 92.1 Total Bilirubin 0.8 AST 30 ALT 30 Alkaline Phosphatase 40 Lactate Dehydrogenase 414 Total Creatine Kinase 206 H Troponin I 0.1270 H* Total Protein 5.0 L Albumin 2.7 L Globulin 2.3 Albumin/Globulin Ratio 1.1 Urine Color Urine Clarity Urine pH Ur Specific [place] Urine Protein Urine Glucose (UA) Urine Ketones Urine Blood Urine Nitrate Urine Bilirubin Urine Urobilinogen Ur Leukocyte Esterase Urine WBC (Auto) Urine RBC (Auto) 07/21/17 07/21/17 07/21/17 11:33 11:33 11:33 WBC RBC Hgb Hct MCV MCH MCHC RDW Plt Count MPV Neut % (Auto) Lymph % (Auto) [place] % (Auto) Eos % (Auto) Baso % (Auto) Neut # (Auto) Lymph # (Auto) [place] # (Auto) Eos # (Auto) Baso # (Auto) Retic Count 1.5 Haptoglobin 128.2 PT INR APTT Sodium Potassium Chloride Carbon Dioxide Anion Gap BUN Creatinine Est GFR ( Amer) Est GFR (Non-Af Amer) Random Glucose Calcium Iron 32 L TIBC 205 L % Saturation 16 L Ferritin Total Bilirubin AST ALT Alkaline Phosphatase Lactate Dehydrogenase Total Creatine Kinase Troponin I Total Protein Albumin Globulin Albumin/Globulin Ratio Urine Color Urine Clarity Urine pH Ur Specific [place] Urine Protein Urine Glucose (UA) Urine Ketones Urine Blood Urine Nitrate Urine Bilirubin Urine Urobilinogen Ur Leukocyte Esterase Urine WBC (Auto) Urine RBC (Auto) Assessment & Plan (1) Fracture of right distal radius Assessment and Plan: sugar tong splint MRi per Dr. Rosenthal, pt with remote injury to wrist r/o SL ligament as well elevation NWB monitor abrasions to dorsum of hand xray thumb (significantly ecchymotic) d/w DR. Rosenthal, agrees with above Status: Acute (2) Abrasion of right hand Status: Acute
--- NOTE | 2017-07-21 22:29 | CARD ---
APPROVED REPORT EXAM: Two-dimensional and M-mode echocardiogram with Doppler and color Doppler. Other Information Quality : GoodRhythm : INDICATION Non STEMI ELEVATED TROPONIN RISK FACTORS Hypertension Hyperlipidemia 2D DIMENSIONS IVSd1.1 (0.7-1.1cm)LVDd4.4 (3.9-5.9cm) PWd1.2 (0.7-1.1cm)LVDs2.1 (2.5-4.0cm) FS (%) 51.5 %LVEF (%)82.9 (>50%) M-Mode DIMENSIONS Left Atrium (MM)4.41 (2.5-4.0cm)Aortic Root4.02 (2.2-3.7cm) Aortic Cusp Exc.1.71 (1.5-2.0cm) Mitral Valve MV E Qzqrtgeo61.9cm/sMV A Smujxskr83.9cm/sE/A ratio1.1 TDI E/Lateral E'0.0E/Medial E'0.0 Tricuspid Valve TR Peak Pnskdwdy588dl/sTR Peak [id number] LEFT VENTRICLE The left ventricle is normal size. There is mild concentric left ventricular hypertrophy. Left ventricle systolic function is normal. The Ejection Fraction is >70%. There is normal LV segmental wall motion. Transmitral Doppler flow pattern is Grade II-pseudonormal filling dynamics. There is no ventricular septal defect visualized. RIGHT VENTRICLE The right ventricle is normal size. The right ventricular systolic function is normal. ATRIA The left atrium is mildly dilated. The right atrium size is normal. AORTIC VALVE The aortic valve is mildly to moderately sclerotic. The aortic valve is tri-cuspid. There is trace aortic regurgitation. There is no aortic valvular stenosis. MITRAL VALVE Mitral annular calcification is mild. There is no evidence of mitral valve prolapse. Mitral regurgitation is trace. TRICUSPID VALVE The tricuspid valve is normal in structure. There is mild tricuspid regurgitation. Right ventricular systolic pressure is estimated at 50-60 mmHg. There is moderate-severe pulmonary hypertension. PULMONIC VALVE The pulmonic valve is not well visualized. There is trace pulmonic valvular regurgitation. GREAT VESSELS The aortic root is normal in size. The ascending aorta is normal in size. The IVC is dilated. PERICARDIAL EFFUSION There is no pericardial effusion. <Conclusion> There is mild concentric left ventricular hypertrophy. Left ventricle systolic function is normal. The Ejection Fraction is >70%. Transmitral Doppler flow pattern is Grade II-pseudonormal filling dynamics. There is trace aortic regurgitation. Mitral regurgitation is trace. There is moderate-severe pulmonary hypertension.
--- NOTE | 2017-07-21 23:10 | CARD ---
APPROVED REPORT EKG Measurement Heart [id number] <Conclusion> Atrial fibrillation Right bundle branch block Left anterior fascicular block Bifascicular block Septal infarct, age undetermined T wave abnormality, consider lateral ischemia Abnormal ECG
--- NOTE | 2017-07-21 23:55 | CP.PCM.CON ---
History of Present Illness - History of Present Illness History of Present Illness: Patient seen and evaluated Admitted for possible syncope and fall Mildy abnormal Trops Not on AC due to facial injuries Normal EF by ECHO Past Patient History - Infectious Disease Hx of Infectious Diseases: None - Past Medical History & Family History Past Medical History?: Yes Past Family History: Reviewed and not pertinent - Past Social History Smoking Status: Never Smoked - CARDIAC Hx Cardiac Disorders: Yes Hx Hypercholesterolemia: Yes Hx Hypertension: Yes - PULMONARY Hx Respiratory Disorders: No - NEUROLOGICAL Hx Neurological Disorder: No - HEENT Hx HEENT Problems: No - RENAL Hx Chronic Kidney Disease: No - ENDOCRINE/METABOLIC Hx Endocrine Disorders: No - HEMATOLOGICAL/ONCOLOGICAL Hx Blood Disorders: Yes Hx Anemia: Yes - INTEGUMENTARY Hx Dermatological Problems: No - MUSCULOSKELETAL/RHEUMATOLOGICAL Hx Musculoskeletal Disorders: No Hx Falls: Yes - GASTROINTESTINAL Hx Gastrointestinal Disorders: No - GENITOURINARY/GYNECOLOGICAL Hx Genitourinary Disorders: Yes Hx Prostate Cancer: Yes - PSYCHIATRIC Hx Psychophysiologic Disorder: No Hx Substance Use: No - SURGICAL HISTORY Hx Surgeries: Yes Other/Comment: left arm tumor. ADNOIDECTOMY - ANESTHESIA Hx Anesthesia: Yes Hx Anesthesia Reactions: No Meds Allergies/Adverse Reactions: Allergies Allergy/AdvReac Type Severity Reaction Status Date / Time No Known Allergies Allergy Verified 07/20/17 11:39 - Medications Medications: Current Medications Aspirin (Aspirin Chewable) 81 mg PO DAILY [facility] Carvedilol (Coreg) 6.25 mg PO BID [facility] Last Admin: 07/21/17 18:32 Dose: 6.25 mg Enalapril Maleate (Vasotec) 15 mg PO DAILY [facility] Last Admin: 07/21/17 10:52 Dose: 15 mg Sodium Chloride (Sodium Chloride 0.9%) 1,000 mls @ 100 mls/hr IV .Q10H [facility] Last Admin: 07/21/17 18:32 Dose: 100 mls/hr Pantoprazole Sodium (Protonix Inj) 40 mg IVP DAILY [facility] Last Admin: 07/21/17 10:51 Dose: 40 mg Pneumococcal Polyvalent Vaccine (Pneumovax 23 Vaccine) 0.5 ml IM .ONCE ONE Stop: 07/23/17 12:01 Potassium Chloride (K-Dur 20 Meq Er Tab) 20 meq PO DAILY [facility] Last Admin: 07/21/17 14:57 Dose: 20 meq Rosuvastatin Calcium (Crestor) 5 mg PO HS [facility] Last Admin: 07/21/17 22:22 Dose: 5 mg Tamsulosin HCl (Flomax) 0.4 mg PO DAILY [facility] Last Admin: 07/21/17 10:50 Dose: 0.4 mg Terazosin HCl (Hytrin) 1 mg PO DAILY [facility] Last Admin: 07/21/17 10:48 Dose: 1 mg Results - Vital Signs Recent Vital Signs: Last Vital Signs Temp 98.1 F 07/21/17 15:00 Pulse 93 H 07/21/17 15:00 Resp 20 07/21/17 15:00 BP 121/70 07/21/17 15:00 Pulse Ox 96 07/21/17 15:00 - Labs Result Diagrams: 07/21/17 11:33 07/21/17 11:33 Labs: Laboratory Results - last 24 hr 07/21/17 07/21/17 07/21/17 01:38 03:09 11:32 WBC RBC Hgb Hct MCV MCH MCHC RDW Plt Count MPV Neut % (Auto) Lymph % (Auto) [place] % (Auto) Eos % (Auto) Baso % (Auto) Neut # (Auto) Lymph # (Auto) [place] # (Auto) Eos # (Auto) Baso # (Auto) Retic Count Haptoglobin PT 13.5 H INR 1.2 APTT 31 Sodium Potassium Chloride Carbon Dioxide Anion Gap BUN Creatinine Est GFR ( Amer) Est GFR (Non-Af Amer) Random Glucose Calcium Iron TIBC % Saturation Ferritin Total Bilirubin AST ALT Alkaline Phosphatase Lactate Dehydrogenase Total Creatine Kinase Troponin I 0.1590 H* Total Protein Albumin Globulin Albumin/Globulin Ratio 07/21/17 07/21/17 07/21/17 11:33 11:33 11:33 WBC 6.7 RBC 2.81 L Hgb 8.9 L Hct 25.4 L MCV 90.5 MCH 31.8 H MCHC 35.2 RDW 13.9 Plt Count 128 L MPV 8.4 Neut % (Auto) 68.2 Lymph % (Auto) 19.9 L [place] % (Auto) 7.1 Eos % (Auto) 3.9 Baso % (Auto) 0.9 Neut # (Auto) 4.6 Lymph # (Auto) 1.3 [place] # (Auto) 0.5 Eos # (Auto) 0.3 Baso # (Auto) 0.1 Retic Count 1.5 Haptoglobin PT INR APTT Sodium 148 Potassium 3.0 L Chloride 113 H Carbon Dioxide 26 Anion Gap 13 BUN 17 Creatinine 0.8 Est GFR ( Amer) > 60 Est GFR (Non-Af Amer) > 60 Random Glucose 154 H Calcium 8.1 L Iron TIBC % Saturation Ferritin 92.1 Total Bilirubin 0.8 AST 30 ALT 30 Alkaline Phosphatase 40 Lactate Dehydrogenase 414 Total Creatine Kinase 206 H Troponin I 0.1270 H* Total Protein 5.0 L Albumin 2.7 L Globulin 2.3 Albumin/Globulin Ratio 1.1 07/21/17 07/21/17 11:33 11:33 WBC RBC Hgb Hct MCV MCH MCHC RDW Plt Count MPV Neut % (Auto) Lymph % (Auto) [place] % (Auto) Eos % (Auto) Baso % (Auto) Neut # (Auto) Lymph # (Auto) [place] # (Auto) Eos # (Auto) Baso # (Auto) Retic Count Haptoglobin 128.2 PT INR APTT Sodium Potassium Chloride Carbon Dioxide Anion Gap BUN Creatinine Est GFR ( Amer) Est GFR (Non-Af Amer) Random Glucose Calcium Iron 32 L TIBC 205 L % Saturation 16 L Ferritin Total Bilirubin AST ALT Alkaline Phosphatase Lactate Dehydrogenase Total Creatine Kinase Troponin I Total Protein Albumin Globulin Albumin/Globulin Ratio
[2017-07-22] MEDS: Sodium Chloride 0.9% 1,000 ML IV SCH ×3 (04:26→17:10)
--- NOTE | 2017-07-22 07:26 | CP.PCM.PN ---
Subjective - Date & Time of Evaluation Date of Evaluation: 07/22/17 Time of Evaluation: 10:00 - Subjective Subjective: Patient states that he can not tolerate the position of the MRI and he again refuses the test. Review of Systems - Review of Systems All systems: reviewed and no additional remarkable complaints except - Musculoskeletal Musculoskeletal: As Par HPI Objective - Vital Signs/Intake and Output Vital Signs (last 24 hours): Temp Pulse Resp BP Pulse Ox 97.4 F L 75 20 125/65 95 07/21/17 23:45 07/22/17 00:54 07/21/17 23:45 07/21/17 23:45 07/21/17 23:45 Intake and Output: 07/22/17 07/22/17 06:59 18:59 Intake Total 940 Output Total 300 Balance 640 - Medications Medications: Current Medications Aspirin (Aspirin Chewable) 81 mg PO DAILY [facility] Carvedilol (Coreg) 6.25 mg PO BID [facility] Last Admin: 07/21/17 18:32 Dose: 6.25 mg Enalapril Maleate (Vasotec) 15 mg PO DAILY [facility] Last Admin: 07/21/17 10:52 Dose: 15 mg Sodium Chloride (Sodium Chloride 0.9%) 1,000 mls @ 100 mls/hr IV .Q10H [facility] Last Admin: 07/22/17 04:26 Dose: 100 mls/hr Pantoprazole Sodium (Protonix Inj) 40 mg IVP DAILY [facility] Last Admin: 07/21/17 10:51 Dose: 40 mg Pneumococcal Polyvalent Vaccine (Pneumovax 23 Vaccine) 0.5 ml IM .ONCE ONE Stop: 07/23/17 12:01 Potassium Chloride (K-Dur 20 Meq Er Tab) 20 meq PO DAILY [facility] Last Admin: 07/21/17 14:57 Dose: 20 meq Rosuvastatin Calcium (Crestor) 5 mg PO HS [facility] Last Admin: 07/21/17 22:22 Dose: 5 mg Tamsulosin HCl (Flomax) 0.4 mg PO DAILY [facility] Last Admin: 07/21/17 10:50 Dose: 0.4 mg Terazosin HCl (Hytrin) 1 mg PO DAILY [facility] Last Admin: 07/21/17 10:48 Dose: 1 mg - Labs Labs: 07/21/17 11:33 07/21/17 11:33 PT 13.5 SECONDS (9.7-12.2) H 07/21/17 11:32 INR 1.2 07/21/17 11:32 APTT 31 SECONDS (21-34) 07/21/17 03:09 - Constitutional Appears: Well, No Acute Distress - Head Exam Additional comments: bruising and swelling to left side of face - Eye Exam Additional comments: subconjunctival hemorrhage left eye - Respiratory Exam Respiratory Exam: NORMAL BREATHING PATTERN - Cardiovascular Exam Additional comments: +cap refill - Extremities Exam Additional comments: +ROM fingers, sensation intacct, elevated, splint intact, noted ecchymnosis to thumb, tender to distal radius - Neurological Exam Neurological Exam: Alert, Awake, Oriented x3 Neuro motor strength exam: Left Upper Extremity: 5 - Psychiatric Exam Psychiatric exam: Normal Affect, Normal Mood - Skin Skin Exam: Dry, Warm Assessment and Plan (1) Fracture of right distal radius Assessment & Plan: per RN, patient refused imaging last night noted reason for consult wrist and facial fractures, facial fractures are outside scope of orthopedist, patient should follow up with [facility] wrist fracture non operative NWB continue splint at this time elevation monitor skin wounds orthopedically stable as patient refuses MRI to evaluate ligament integrity PT/OT, PT note appreciated, recommend [facility]ANE[facility], patient amenable f/u as outpt approx 1 week call for appt [phone] d/w Dr. Rosenthal, agrees with above Status: Acute (2) Abrasion of right hand Status: Acute Radiology Interpretation - Notes: Notes:: Patient Name / ID : KENYON MONZON / [id number] Exam Date : 07/22/2017 09:17:34 ( Approved ) Study Comment : Sex / Age : M / 82Y Creator : Moon Suh Dictator : Moon Suh Service Loss Control Consultant : Production Officer : Moon Suh Approver2 : Report Date : 07/22/2017 10:54:10 My Comment : PROCEDURE: Right Thumb radiographs. HISTORY: swelling COMPARISON: 07/20/2017 TECHNIQUE: AP radiograph of the right hand, as well as spot oblique and lateral images of thumb were obtained. FINDINGS: RIGHT THUMB: Casting obscures bony detail. The vertical distal radial metaphyseal/ epiphyseal radiolucency with possible oblique trabecular fracture it towards the radial styloid is less conspicuous on this exam. A loop radial epiphyseal intraarticular nondisplaced fracture is inferred. Additional comminuted nondisplaced fracture component also suspect. JOINTS: Radiocarpal 1st carpal metacarpal and 1st metacarpal phalangeal joint joint space narrowing -arthrosis SOFT TISSUES: Normal. OTHER FINDINGS: None. IMPRESSION: Nondisplaced distal radial fractures -as above. Casting placed Degenerative changes -as above on No. : [id number] Patient Name / ID : KENYON Reynoso / [id number] Exam Date : 07/20/2017 14:14:17 ( Approved ) Study Comment : Sex / Age : M / 82Y Creator : Nishant Vigil MD Dictator : Nishant Vigil MD Service Loss Control Consultant : Production Officer : Nishant Vigil MD Approver2 : Report Date : 07/20/2017 16:37:20 My Comment : Right wrist three views History: Injury. Comparison: None available. Findings: Widening of the scapholunate interval measuring 3.6 millimeters which may represent underlying scaphoid ligament tear and or dissociation. Prominent narrowing of the radiocarpal joint space. On the frontal view, there is a vertically-oriented lucency along the ulnar aspect of the distal radius at the articular surface which may represent osseous injury. Additional productive change along the articular surface of the distal radius at its mid to ulnar aspect. Productive change along the radial cortex of the distal radius. Diffuse osteopenia. Prominent sacrotuberous notch along the radial aspect of the mid scaphoid waist. Prominent degenerative changes noted at the 1st carpometacarpal joint space. Bony productive change at the base of the 5th metacarpal bone which may represent chronic osseous injury. Additional degenerative changes noted at the articulation of the 5th metacarpal bone and adjacent hamate. Productive change along the dorsal aspect of the triquetral bone, nonspecific. Impression: Widening of the scapholunate interval measuring 3.6 millimeters which may represent underlying scaphoid ligament tear and or dissociation. Prominent narrowing of the radiocarpal joint space. On the frontal view, there is a vertically-oriented lucency along the ulnar aspect of the distal radius at the articular surface which may represent osseous injury. Additional productive change along the articular surface of the distal radius at its mid to ulnar aspect. Productive change along the radial cortex of the distal radius. Diffuse osteopenia. Prominent sacrotuberous notch along the radial aspect of the mid scaphoid waist. Prominent degenerative changes noted at the 1st carpometacarpal joint space. Bony productive change at the base of the 5th metacarpal bone which may represent chronic osseous injury. Additional degenerative changes noted at the articulation of the 5th metacarpal bone and adjacent hamate. Productive change along the dorsal aspect of the triquetral bone, nonspecific. If pain persists, consider correlation with CT or MR to exclude osseous injury and/or internal derangement.
--- NOTE | 2017-07-22 07:37 | HP ---
HISTORY OF PRESENT ILLNESS: This is an 82-year-old male, admitted to the hospital with chief complaint of weakness, fatigue, tiredness, passing out. The patient presented to the ER, found to have elevated liver enzyme, increase of the troponin. The patient has PICC line for the following Pulmonary. From medical standpoint, the patient is receiving Lupron injection and . The patient was seen and advised admission. The patient denies any medical problems in the past except for the prostate cancer. PHYSICAL EXAMINATION: GENERAL: As mentioned above, the patient is awake, alert, elderly frail man. HEENT: There are bruises of the face on the left side, swelling over the zygoma. NECK: Supple. CHEST: Symmetrical. HEART: Regular. ABDOMEN: Soft. EXTREMITIES: Also cast in the right wrist. IMPRESSION AND PLAN: The patient suffers from acute myocardial infarction, non-ST elevation myocardial infarction, prostate cancer, osteoporosis, fracture of the wrist. The patient progressed, supportive care, Cardiology consult. Elton Madsen MD
[2017-07-22 08:04] LABS: BASO # 0.1 K/uL (0.0-0.2); BASO % 0.9 % (0.0-2.0); EOS # 0.3 K/uL (0.0-0.7); EOS % 4.7 % (0.0-4.0); HEMOGLOBIN 8.9 g/dL (12.0-18.0); LYMPH # 1.4 K/uL (1.0-4.3); LYMPH % 23.6 % (20.0-40.0); MEAN CELL VOLUME 90.2 fL (80.0-94.0); MEAN CORPUSCULAR HEMOGLOBIN 32.1 pg (27.0-31.0); MEAN CORPUSCULAR HGB CONC 35.6 g/dL (33.0-37.0); MONO # 0.5 K/uL (0.0-0.8); MONO % 8.2 % (0.0-10.0); NEUT # 3.7 K/uL (1.8-7.0); NEUT % 62.6 % (50.0-75.0); NRBC % 0.1 % (0.0-2.0); RBC 2.78 Mil/uL (4.40-5.90); RED CELL DISTRIBUTION WIDTH 14.1 % (11.5-14.5); WHITE BLOOD COUNT 5.9 K/uL (4.8-10.8)
[2017-07-22 08:14] LABS: ALB/GLOB RATIO 1.2 (1.0-2.1); ALBUMIN 2.7 g/dL (3.5-5.0); ALT/SGPT 19 U/L (21-72); AST/SGOT 26 U/L (17-59); BLOOD UREA NITROGEN 12 mg/dL (9-20); CALCIUM 8.1 mg/dl (8.6-10.4); GFR AFRICAN-AMERICAN > 60; GFR NON-AFRICAN AMERICAN > 60
[2017-07-22] MEDS: Potassium Chloride 20 mEq ER Tab PO SCH (10:09)
--- NOTE | 2017-07-22 11:00 | RAD ---
PROCEDURE: Right Thumb radiographs. HISTORY: swelling COMPARISON: 07/20/2017 TECHNIQUE: AP radiograph of the right hand, as well as spot oblique and lateral images of thumb were obtained. FINDINGS: RIGHT THUMB: Casting obscures bony detail. The vertical distal radial metaphyseal/ epiphyseal radiolucency with possible oblique trabecular fracture it towards the radial styloid is less conspicuous on this exam. A loop radial epiphyseal intraarticular nondisplaced fracture is inferred. Additional comminuted nondisplaced fracture component also suspect. JOINTS: Radiocarpal 1st carpal metacarpal and 1st metacarpal phalangeal joint joint space narrowing -arthrosis SOFT TISSUES: Normal. OTHER FINDINGS: None. IMPRESSION: Nondisplaced distal radial fractures -as above. Casting placed Degenerative changes -as above
--- NOTE | 2017-07-22 11:46 | CP.PCM.PN ---
Subjective - Date & Time of Evaluation Date of Evaluation: 07/22/17 Time of Evaluation: 11:45 - Subjective Subjective: Progress note. Attending: Dr. Madsen. Pt seen and examined at bedside. No acute distress. No events overnight. Will remove nasal packing. No fevers, chills, vomiting, diarrhea. Objective - Vital Signs/Intake and Output Vital Signs (last 24 hours): Temp Pulse Resp BP Pulse Ox 98.0 F 97 H 18 122/78 95 07/22/17 07:25 07/22/17 07:25 07/22/17 07:25 07/22/17 10:08 07/22/17 07:25 Intake and Output: 07/22/17 07/22/17 06:59 18:59 Intake Total 940 Output Total 300 Balance 640 - Medications Medications: Current Medications Aspirin (Aspirin Chewable) 81 mg PO DAILY [facility] Last Admin: 07/22/17 10:09 Dose: 81 mg Carvedilol (Coreg) 6.25 mg PO BID [facility] Last Admin: 07/22/17 10:09 Dose: 6.25 mg Enalapril Maleate (Vasotec) 15 mg PO DAILY [facility] Last Admin: 07/22/17 10:08 Dose: 15 mg Sodium Chloride (Sodium Chloride 0.9%) 1,000 mls @ 100 mls/hr IV .Q10H [facility] Last Admin: 07/22/17 04:26 Dose: 100 mls/hr Pantoprazole Sodium (Protonix Inj) 40 mg IVP DAILY [facility] Last Admin: 07/22/17 10:09 Dose: 40 mg Pneumococcal Polyvalent Vaccine (Pneumovax 23 Vaccine) 0.5 ml IM .ONCE ONE Stop: 07/23/17 12:01 Potassium Chloride (K-Dur 20 Meq Er Tab) 20 meq PO DAILY [facility] Last Admin: 07/22/17 10:09 Dose: 20 meq Rosuvastatin Calcium (Crestor) 5 mg PO HS [facility] Last Admin: 07/21/17 22:22 Dose: 5 mg Tamsulosin HCl (Flomax) 0.4 mg PO DAILY [facility] Last Admin: 07/22/17 10:09 Dose: 0.4 mg Terazosin HCl (Hytrin) 1 mg PO DAILY [facility] Last Admin: 07/22/17 10:09 Dose: 1 mg - Labs Labs: 07/22/17 07:52 07/22/17 07:52 PT 13.5 SECONDS (9.7-12.2) H 07/21/17 11:32 INR 1.2 07/21/17 11:32 APTT 31 SECONDS (21-34) 07/21/17 03:09 - Constitutional Appears: Non-toxic, No Acute Distress - Head Exam Head Exam: NORMOCEPHALIC. absent: ATRAUMATIC, NORMAL INSPECTION - Eye Exam Eye Exam: EOMI - ENT Exam ENT Exam: Mucous Membranes Moist - Neck Exam Neck Exam: Full ROM, Normal Inspection - Respiratory Exam Respiratory Exam: NORMAL BREATHING PATTERN. absent: Respiratory Distress - Cardiovascular Exam Cardiovascular Exam: +S1, +S2 - GI/Abdominal Exam GI & Abdominal Exam: Soft, Normal Bowel Sounds. absent: Tenderness - Extremities Exam Extremities Exam: Full ROM, Normal Inspection - Back Exam Back Exam: NORMAL INSPECTION - Neurological Exam Neurological Exam: Alert, Awake, Oriented x3 - Psychiatric Exam Psychiatric exam: Normal Affect, Normal Mood - Skin Skin Exam: Dry, Intact, Normal Color, Warm Assessment and Plan - Assessment and Plan (Free Text) Assessment: This is an 82 yo male with 1. elevated troponin/NSTEMI -cardiology consult. recs appreciated. -coreg 6.25 mg po bid -enalapril 15 mg po daily -crestor 5 mg po hs -asa 81 mg po daily 2. Hx of atrial fibrillation -coreg 6.25 mg po bid -ekg -echo pending -cardio eval. Dr. Dominguez. recs appreciated. 3. wrist injury/fall -PT evaluation pending 4. anemia -stool occult blood -ldh, haptoglobin -retic count -iron studies 5. GI/DVT ppx -scds -protonix 40 mg iv daily discussed with Dr. Madsen
--- NOTE | 2017-07-22 13:43 | CARD ---
APPROVED REPORT EKG Measurement Heart [id number] <Conclusion> Atrial fibrillation with premature ventricular or aberrantly conducted complexes Left axis deviation Right bundle branch block Septal infarct, age undetermined T wave abnormality, consider lateral ischemia Abnormal ECG
--- NOTE | 2017-07-22 17:27 | CP.PCM.CON ---
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 The patient reports to falling due to generalized weakness. He had a recent dose reduction in his Zytiga due to progressive generalized fatigue. He reports his oncologist told him his PSA was well controlled at his last visit. 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 Allergies: NKA Review of systems: All remaining review of systems including HEENT, cardiovacular, respiratory, gastrointestinal, genitourinary, musculoskeletal, dermatologic, neurologic, and psychiatric are negative unless mentioned in the HPI. Past Patient History - Infectious Disease Hx of Infectious Diseases: None - Past Medical History & Family History Past Medical History?: Yes Past Family History: Reviewed and not pertinent - Past Social History Smoking Status: Never Smoked - CARDIAC Hx Cardiac Disorders: Yes Hx Hypercholesterolemia: Yes Hx Hypertension: Yes - PULMONARY Hx Respiratory Disorders: No - NEUROLOGICAL Hx Neurological Disorder: No - HEENT Hx HEENT Problems: No - RENAL Hx Chronic Kidney Disease: No - ENDOCRINE/METABOLIC Hx Endocrine Disorders: No - HEMATOLOGICAL/ONCOLOGICAL Hx Blood Disorders: Yes Hx Anemia: Yes - INTEGUMENTARY Hx Dermatological Problems: No - MUSCULOSKELETAL/RHEUMATOLOGICAL Hx Musculoskeletal Disorders: No Hx Falls: Yes - GASTROINTESTINAL Hx Gastrointestinal Disorders: No - GENITOURINARY/GYNECOLOGICAL Hx Genitourinary Disorders: Yes Hx Prostate Cancer: Yes - PSYCHIATRIC Hx Psychophysiologic Disorder: No Hx Substance Use: No - SURGICAL HISTORY Hx Surgeries: Yes Other/Comment: left arm tumor. ADNOIDECTOMY - ANESTHESIA Hx Anesthesia: Yes Hx Anesthesia Reactions: No Meds Allergies/Adverse Reactions: Allergies Allergy/AdvReac Type Severity Reaction Status Date / Time No Known Allergies Allergy Verified 07/20/17 11:39 - Medications Medications: Current Medications Aspirin (Aspirin Chewable) 81 mg PO DAILY [facility] Last Admin: 07/22/17 10:09 Dose: 81 mg Carvedilol (Coreg) 6.25 mg PO BID [facility] Last Admin: 07/22/17 17:11 Dose: 6.25 mg Enalapril Maleate (Vasotec) 15 mg PO DAILY [facility] Last Admin: 07/22/17 10:08 Dose: 15 mg Sodium Chloride (Sodium Chloride 0.9%) 1,000 mls @ 100 mls/hr IV .Q10H [facility] Last Admin: 07/22/17 17:10 Dose: 100 mls/hr Pantoprazole Sodium (Protonix Inj) 40 mg IVP DAILY [facility] Last Admin: 07/22/17 10:09 Dose: 40 mg Pneumococcal Polyvalent Vaccine (Pneumovax 23 Vaccine) 0.5 ml IM .ONCE ONE Stop: 07/23/17 12:01 Potassium Chloride (K-Dur 20 Meq Er Tab) 20 meq PO DAILY [facility] Last Admin: 07/22/17 10:09 Dose: 20 meq Rosuvastatin Calcium (Crestor) 5 mg PO HS [facility] Last Admin: 07/21/17 22:22 Dose: 5 mg Tamsulosin HCl (Flomax) 0.4 mg PO DAILY [facility] Last Admin: 07/22/17 10:09 Dose: 0.4 mg Terazosin HCl (Hytrin) 1 mg PO DAILY [facility] Last Admin: 07/22/17 10:09 Dose: 1 mg Physical Exam - Head Exam Head Exam: ATRAUMATIC - Eye Exam Eye Exam: Normal appearance - ENT Exam ENT Exam: Mucous Membranes Dry - Respiratory Exam Respiratory Exam: NORMAL BREATHING PATTERN - Cardiovascular Exam Cardiovascular Exam: +S1, +S2 - GI/Abdominal Exam GI & Abdominal Exam: Normal Bowel Sounds Results - Vital Signs Recent Vital Signs: Last Vital Signs Temp 98.0 F 07/22/17 07:25 Pulse 99 H 07/22/17 16:00 Resp 18 07/22/17 07:25 BP 122/78 07/22/17 10:08 Pulse Ox 95 07/22/17 07:25 - Labs Result Diagrams: 07/23/17 06:48 07/23/17 06:48 Labs: Laboratory Results - last 24 hr 07/22/17 07/22/17 07/22/17 06:00 07:52 07:52 WBC 5.9 RBC 2.78 L Hgb 8.9 L Hct 25.1 L MCV 90.2 MCH 32.1 H MCHC 35.6 RDW 14.1 Plt Count 123 L MPV 8.0 Neut % (Auto) 62.6 Lymph % (Auto) 23.6 [place] % (Auto) 8.2 Eos % (Auto) 4.7 H Baso % (Auto) 0.9 Neut # (Auto) 3.7 Lymph # (Auto) 1.4 [place] # (Auto) 0.5 Eos # (Auto) 0.3 Baso # (Auto) 0.1 Sodium 144 Potassium 3.3 L Chloride 111 H Carbon Dioxide 26 Anion Gap 10 BUN 12 Creatinine 0.8 Est GFR ( Amer) > 60 Est GFR (Non-Af Amer) > 60 POC Glucose (mg/dL) 93 Random Glucose 96 Calcium 8.1 L Phosphorus 2.4 L Magnesium 1.8 Total Bilirubin 0.5 AST 26 ALT 19 L D Alkaline Phosphatase 42 Total Protein 5.0 L Albumin 2.7 L Globulin 2.3 Albumin/Globulin Ratio 1.2 07/22/17 07/22/17 11:19 16:35 WBC RBC Hgb Hct MCV MCH MCHC RDW Plt Count MPV Neut % (Auto) Lymph % (Auto) [place] % (Auto) Eos % (Auto) Baso % (Auto) Neut # (Auto) Lymph # (Auto) [place] # (Auto) Eos # (Auto) Baso # (Auto) Sodium Potassium Chloride Carbon Dioxide Anion Gap BUN Creatinine Est GFR ( Amer) Est GFR (Non-Af Amer) POC Glucose (mg/dL) 149 H 104 Random Glucose Calcium Phosphorus Magnesium Total Bilirubin AST ALT Alkaline Phosphatase Total Protein Albumin Globulin Albumin/Globulin Ratio Assessment & Plan (1) Prostate cancer Assessment and Plan: castrate resistant LN and bone metastasis on outpatient Zytiga; can continue to hold given debility can restart once performance status improves. Status: Acute (2) Anemia Assessment and Plan: will check retic count, b12, folate, ferritin to further characterize likely chronic disease from malignancy Status: Acute (3) Thrombocytopenia Assessment and Plan: mild, cont. to monitor Thank you for this interesting consult. Status: Acute
[2017-07-23] MEDS: Sodium Chloride 0.9% 1,000 ML IV SCH (03:37)
[2017-07-23 06:57] LABS: BASO % 0.9 % (0.0-2.0); EOS # 0.3 K/uL (0.0-0.7); EOS % 4.9 % (0.0-4.0); HEMOGLOBIN 8.5 g/dL (12.0-18.0); LYMPH # 1.2 K/uL (1.0-4.3); LYMPH % 22.9 % (20.0-40.0); MEAN CELL VOLUME 90.2 fL (80.0-94.0); MEAN CORPUSCULAR HEMOGLOBIN 31.5 pg (27.0-31.0); MEAN CORPUSCULAR HGB CONC 34.9 g/dL (33.0-37.0); MEAN PLATELET VOLUME 8.1 fL (7.2-11.7); MONO # 0.5 K/uL (0.0-0.8); MONO % 9.1 % (0.0-10.0); NEUT # 3.3 K/uL (1.8-7.0); NEUT % 62.2 % (50.0-75.0); RBC 2.69 Mil/uL (4.40-5.90); RED CELL DISTRIBUTION WIDTH 14.1 % (11.5-14.5); WHITE BLOOD COUNT 5.3 K/uL (4.8-10.8)
[2017-07-23 07:22] LABS: ALB/GLOB RATIO 1.1 (1.0-2.1); ALBUMIN 2.5 g/dL (3.5-5.0); ALT/SGPT 19 U/L (21-72); AST/SGOT 24 U/L (17-59); BLOOD UREA NITROGEN 10 mg/dL (9-20); CALCIUM 7.9 mg/dl (8.6-10.4); GFR AFRICAN-AMERICAN > 60; GFR NON-AFRICAN AMERICAN > 60
--- NOTE | 2017-07-23 07:55 | CP.PCM.PN ---
Subjective - Date & Time of Evaluation Date of Evaluation: 07/22/17 Time of Evaluation: 18:35 - Subjective Subjective: Patient seen and evaluated Continued observation and medical management for now Not a candidate for therapeutic anti coagulation Objective - Vital Signs/Intake and Output Vital Signs (last 24 hours): Temp Pulse Resp BP Pulse Ox 97.9 F 84 20 130/78 95 07/23/17 04:12 07/23/17 04:22 07/23/17 04:12 07/23/17 04:12 07/23/17 04:12 Intake and Output: 07/23/17 07/23/17 06:59 18:59 Intake Total 800 Balance 800 - Medications Medications: Current Medications Aspirin (Aspirin Chewable) 81 mg PO DAILY [facility] Last Admin: 07/22/17 10:09 Dose: 81 mg Carvedilol (Coreg) 6.25 mg PO BID [facility] Last Admin: 07/22/17 17:11 Dose: 6.25 mg Enalapril Maleate (Vasotec) 15 mg PO DAILY [facility] Last Admin: 07/22/17 10:08 Dose: 15 mg Sodium Chloride (Sodium Chloride 0.9%) 1,000 mls @ 100 mls/hr IV .Q10H [facility] Last Admin: 07/23/17 03:37 Dose: 100 mls/hr Pantoprazole Sodium (Protonix Inj) 40 mg IVP DAILY [facility] Last Admin: 07/22/17 10:09 Dose: 40 mg Pneumococcal Polyvalent Vaccine (Pneumovax 23 Vaccine) 0.5 ml IM .ONCE ONE Stop: 07/23/17 12:01 Potassium Chloride (K-Dur 20 Meq Er Tab) 20 meq PO DAILY [facility] Last Admin: 07/22/17 10:09 Dose: 20 meq Rosuvastatin Calcium (Crestor) 5 mg PO HS [facility] Last Admin: 07/22/17 22:10 Dose: 5 mg Tamsulosin HCl (Flomax) 0.4 mg PO DAILY [facility] Last Admin: 07/22/17 10:09 Dose: 0.4 mg Terazosin HCl (Hytrin) 1 mg PO DAILY [facility] Last Admin: 07/22/17 10:09 Dose: 1 mg - Labs Labs: 07/23/17 06:48 07/23/17 06:48 PT 13.5 SECONDS (9.7-12.2) H 06/04/18 11:32 INR 1.2 07/21/17 11:32 APTT 31 SECONDS (21-34) 07/21/17 03:09
[2017-07-23] MEDS: Potassium Chloride 20 mEq ER Tab PO SCH (10:55)
[2017-07-23] MEDS: Pantoprazole 40 mg EC Tab PO SCH (11:08)
--- NOTE | 2017-07-23 11:29 | CP.PCM.PN ---
Subjective - Date & Time of Evaluation Date of Evaluation: 07/23/17 Time of Evaluation: 11:25 - Subjective Subjective: Progress Note for Dr. Madsen's Service Pt seen and examined at bedside. He has extensive bruising of the head and neck on the left. HE complains of some soreness but states that he is otherwise ok. Denies fevers, chills, chest pain, SOB, nausea, vomiting. Objective - Vital Signs/Intake and Output Vital Signs (last 24 hours): Temp Pulse Resp BP Pulse Ox 98.3 F 90 18 143/92 H 97 07/23/17 07:15 07/23/17 07:15 07/23/17 07:15 07/23/17 10:51 07/23/17 07:15 Intake and Output: 07/23/17 07/23/17 06:59 18:59 Intake Total 800 Balance 800 - Medications Medications: Current Medications Aspirin (Aspirin Chewable) 81 mg PO DAILY [facility] Last Admin: 07/23/17 10:55 Dose: 81 mg Carvedilol (Coreg) 6.25 mg PO BID [facility] Last Admin: 07/23/17 10:55 Dose: 6.25 mg Enalapril Maleate (Vasotec) 15 mg PO DAILY [facility] Last Admin: 07/23/17 10:51 Dose: 15 mg Pantoprazole Sodium (Protonix Ec Tab) 40 mg PO DAILY [facility] Last Admin: 07/23/17 11:08 Dose: 40 mg Pneumococcal Polyvalent Vaccine (Pneumovax 23 Vaccine) 0.5 ml IM .ONCE ONE Stop: 07/23/17 12:01 Potassium Chloride (K-Dur 20 Meq Er Tab) 20 meq PO DAILY [facility] Last Admin: 07/23/17 10:55 Dose: 20 meq Rosuvastatin Calcium (Crestor) 5 mg PO HS [facility] Last Admin: 07/22/17 22:10 Dose: 5 mg Tamsulosin HCl (Flomax) 0.4 mg PO DAILY [facility] Last Admin: 07/23/17 10:55 Dose: 0.4 mg Terazosin HCl (Hytrin) 1 mg PO DAILY [facility] Last Admin: 07/23/17 10:55 Dose: 1 mg - Labs Labs: 07/23/17 06:48 07/23/17 06:48 PT 13.5 SECONDS (9.7-12.2) H 07/21/17 11:32 INR 1.2 07/21/17 11:32 APTT 31 SECONDS (21-34) 07/21/17 03:09 - Constitutional Appears: No Acute Distress - Head Exam Additional comments: Extensive trauma/bruising of the head and neck favoring the left side. Multiple stitched wound repairs. Left eye erythema. - Eye Exam Eye Exam: EOMI - ENT Exam ENT Exam: Mucous Membranes Moist - Respiratory Exam Respiratory Exam: Clear to Ausculation Bilateral, NORMAL BREATHING PATTERN - Cardiovascular Exam Cardiovascular Exam: +S1, +S2 - GI/Abdominal Exam GI & Abdominal Exam: Soft. absent: Tenderness - Extremities Exam Additional comments: right arm in splint with bruising visible - Neurological Exam Neurological Exam: Alert, Awake, Oriented x3 - Psychiatric Exam Psychiatric exam: Normal Affect, Normal Mood - Skin Skin Exam: Dry, Warm Assessment and Plan - Assessment and Plan (Free Text) Plan: 1. Fall/Syncope with extensive head and neck trauma -NSTEMI suspected due to elevated tropinins-cardiology consult placed to Dr. Benz. colmenares appreciated. Trops: 0.1270, 0.1590, 0.1900 Ekg- abnormal -coreg 6.25 mg po bid -enalapril 15 mg po daily -crestor 5 mg po hs -asa 81 mg po daily 2. Hx of atrial fibrillation -coreg 6.25 mg po bid -ekg- abnormal -echo- LVH, 70%EF, Mod-Severe pulmonary HTN -cardio eval. Dr. Benz. colmenares appreciated. 3. wrist injury/fall -PT evaluation -Right hand xray- nondisplaced distal radius fx 4. anemia -stool occult blood pending -ldh, haptoglobin pending -retic count pending -iron studies pending -Consult placed to Dr. Morin- darrian appreciated 5. BPH Tamsulosin 0.4mg PO daily D/C terazosin- unsure why two agents in the same class were being used for BPH 6. GI/DVT ppx -scds -protonix 40 mg iv daily -crestor 5mg PO qd -PT eval for placement in rehab Case discussed with Dr. Madsen All management as per Dr. Madsen
[2017-07-23] MEDS ORDERED: Pneumococcal 23-Valent Vaccine IM ONE (12:00)
--- NOTE | 2017-07-23 12:15 | CP.PCM.PN ---
Subjective - Date & Time of Evaluation Date of Evaluation: 07/23/17 Time of Evaluation: 12:12 - Subjective Subjective: Patient states pain in wrist is improving. He feels "beat up" and is sore all over. NO new complaints. Review of Systems - Review of Systems All systems: reviewed and no additional remarkable complaints except - Musculoskeletal Musculoskeletal: As Par HPI Objective - Vital Signs/Intake and Output Vital Signs (last 24 hours): Temp Pulse Resp BP Pulse Ox 98.3 F 90 18 143/92 H 97 07/23/17 07:15 07/23/17 07:15 07/23/17 07:15 07/23/17 10:51 07/23/17 07:15 Intake and Output: 07/23/17 07/23/17 06:59 18:59 Intake Total 800 Balance 800 - Medications Medications: Current Medications Aspirin (Aspirin Chewable) 81 mg PO DAILY [facility] Last Admin: 07/23/17 10:55 Dose: 81 mg Carvedilol (Coreg) 6.25 mg PO BID [facility] Last Admin: 07/23/17 10:55 Dose: 6.25 mg Enalapril Maleate (Vasotec) 15 mg PO DAILY [facility] Last Admin: 07/23/17 10:51 Dose: 15 mg Pantoprazole Sodium (Protonix Ec Tab) 40 mg PO DAILY [facility] Last Admin: 07/23/17 11:08 Dose: 40 mg Potassium Chloride (K-Dur 20 Meq Er Tab) 20 meq PO DAILY [facility] Last Admin: 07/23/17 10:55 Dose: 20 meq Rosuvastatin Calcium (Crestor) 5 mg PO HS [facility] Last Admin: 07/22/17 22:10 Dose: 5 mg Tamsulosin HCl (Flomax) 0.4 mg PO DAILY [facility] Last Admin: 07/23/17 10:55 Dose: 0.4 mg - Labs Labs: 07/23/17 06:48 07/23/17 06:48 PT 13.5 SECONDS (9.7-12.2) H 07/21/17 11:32 INR 1.2 07/21/17 11:32 APTT 31 SECONDS (21-34) 07/21/17 03:09 - Constitutional Appears: Well, No Acute Distress - Head Exam Additional comments: ecchymosis left face, subconj hemorrhage improving slowly - Neck Exam Neck Exam: Full ROM - Respiratory Exam Respiratory Exam: NORMAL BREATHING PATTERN - Cardiovascular Exam Additional comments: +cap refill - Extremities Exam Additional comments: +ROM fingers, sensation intact rad/med/ulnar nerve, splint intact, ecchymosis and swelling improving no laxity to right thumb UCL - Neurological Exam Neurological Exam: Alert, Awake, Oriented x3 Neuro motor strength exam: Left Upper Extremity: 5 - Psychiatric Exam Psychiatric exam: Normal Affect, Normal Mood - Skin Skin Exam: Dry, Intact, Normal Color, Warm Assessment and Plan (1) Fracture of right distal radius Assessment & Plan: maintain splint at all times orthopedically stable patient refusing MRI noted reason for consult wrist and facial fractures, facial fractures are outside scope of orthopedist, patient should follow up with [facility] wrist fracture non operative NWB continue splint at this time elevation monitor skin wounds orthopedically stable as patient refuses MRI to evaluate ligament integrity, can follow up as outpt PT/OT, PT note appreciated, recommend [facility], patient amenable f/u as outpt approx 1 week call for appt [phone] d/w Dr. Rosenthal, agrees with above Status: Acute (2) Abrasion of right hand Status: Acute
[2017-07-23] MEDS: POLYETHYLENE GLYCOL 3350 17 GM/Dose PACKET PO SCH (22:05)
--- NOTE | 2017-07-23 23:04 | CP.PCM.PN ---
Subjective - Date & Time of Evaluation Date of Evaluation: 07/23/17 Time of Evaluation: 16:10 - Subjective Subjective: Patient seen and evaluated Denies chest pain and dyspnea Objective - Vital Signs/Intake and Output Vital Signs (last 24 hours): Temp Pulse Resp BP Pulse Ox 99.3 F 99 H 20 136/73 94 L 07/23/17 16:00 07/23/17 16:00 07/23/17 16:00 07/23/17 16:00 07/23/17 16:00 Intake and Output: 07/23/17 07/24/17 18:59 06:59 Intake Total 500 Balance 500 - Medications Medications: Current Medications Aspirin (Aspirin Chewable) 81 mg PO DAILY [facility] Last Admin: 07/23/17 10:55 Dose: 81 mg Carvedilol (Coreg) 6.25 mg PO BID [facility] Last Admin: 07/23/17 18:06 Dose: 6.25 mg Enalapril Maleate (Vasotec) 15 mg PO DAILY [facility] Last Admin: 07/23/17 10:51 Dose: 15 mg Pantoprazole Sodium (Protonix Ec Tab) 40 mg PO DAILY [facility] Last Admin: 07/23/17 11:08 Dose: 40 mg Polyethylene Glycol (Miralax) 17 gm PO DAILY [facility] Last Admin: 07/23/17 22:05 Dose: 17 gm Potassium Chloride (K-Dur 20 Meq Er Tab) 20 meq PO DAILY [facility] Last Admin: 07/23/17 10:55 Dose: 20 meq Rosuvastatin Calcium (Crestor) 5 mg PO HS [facility] Last Admin: 07/23/17 22:05 Dose: 5 mg Tamsulosin HCl (Flomax) 0.4 mg PO DAILY [facility] Last Admin: 07/23/17 10:55 Dose: 0.4 mg - Labs Labs: 07/23/17 06:48 07/23/17 06:48 PT 13.5 SECONDS (9.7-12.2) H 07/21/17 11:32 INR 1.2 07/21/17 11:32 APTT 31 SECONDS (21-34) 07/21/17 03:09
--- NOTE | 2017-07-24 09:44 | CP.PCM.PN ---
Subjective - Date & Time of Evaluation Date of Evaluation: 07/24/17 Time of Evaluation: 09:44 - Subjective Subjective: Progress Note for Dr. Madsen's Service Patient seen and examined at bedside this morning. He states that he is well and does not have any acute complaints today. He denies chest pain/sob. He is being followed by Dr. Dominguez who is considering introduction of anticoagulation given the patients arrhythmia, however we await approval from surgical team. No acute events overnight as per nursing. Objective - Vital Signs/Intake and Output Vital Signs (last 24 hours): Temp Pulse Resp BP Pulse Ox 97.9 F 83 18 153/74 H 96 07/24/17 07:35 07/24/17 08:50 07/24/17 07:35 07/24/17 07:35 07/24/17 07:35 Intake and Output: 07/24/17 07/24/17 06:59 18:59 Intake Total 350 Balance 350 - Medications Medications: Current Medications Aspirin (Aspirin Chewable) 81 mg PO DAILY [facility] Last Admin: 07/23/17 10:55 Dose: 81 mg Carvedilol (Coreg) 6.25 mg PO BID [facility] Last Admin: 07/23/17 18:06 Dose: 6.25 mg Enalapril Maleate (Vasotec) 15 mg PO DAILY [facility] Last Admin: 07/23/17 10:51 Dose: 15 mg Pantoprazole Sodium (Protonix Ec Tab) 40 mg PO DAILY [facility] Last Admin: 07/23/17 11:08 Dose: 40 mg Polyethylene Glycol (Miralax) 17 gm PO DAILY [facility] Last Admin: 07/23/17 22:05 Dose: 17 gm Potassium Chloride (K-Dur 20 Meq Er Tab) 20 meq PO DAILY [facility] Last Admin: 07/23/17 10:55 Dose: 20 meq Rosuvastatin Calcium (Crestor) 5 mg PO HS [facility] Last Admin: 07/23/17 22:05 Dose: 5 mg Tamsulosin HCl (Flomax) 0.4 mg PO DAILY [facility] Last Admin: 07/23/17 10:55 Dose: 0.4 mg - Labs Labs: 07/23/17 06:48 07/23/17 06:48 PT 13.5 SECONDS (9.7-12.2) H 07/21/17 11:32 INR 1.2 07/21/17 11:32 APTT 31 SECONDS (21-34) 07/21/17 03:09 - Constitutional Appears: No Acute Distress - Head Exam Additional comments: extensive bruising and trauma to the face and neck on the left - Eye Exam Eye Exam: EOMI - ENT Exam ENT Exam: Mucous Membranes Moist - Respiratory Exam Respiratory Exam: Clear to Ausculation Bilateral, NORMAL BREATHING PATTERN - Cardiovascular Exam Cardiovascular Exam: Irregular Rhythm, +S1, +S2 - GI/Abdominal Exam GI & Abdominal Exam: Soft. absent: Tenderness - Extremities Exam Additional comments: splint on left forearm with visible bruising - Neurological Exam Neurological Exam: Alert, Awake, Oriented x3 - Skin Skin Exam: Dry, Warm Assessment and Plan - Assessment and Plan (Free Text) Plan: 1. Fall/Syncope with extensive head and neck trauma -NSTEMI suspected due to elevated tropinins-cardiology consult placed to Dr. Benz. colmenares appreciated. Trops: 0.1270, 0.1590, 0.1900 Ekg- abnormal -coreg 6.25 mg po bid -enalapril 15 mg po daily -crestor 5 mg po hs -asa 81 mg po daily -Orthopedic consult placed to Dr. Segovia appreciated No surgical intervention at this time for facial trauma 2. Hx of atrial fibrillation -coreg 6.25 mg po bid -ekg- abnormal -echo- LVH, 70%EF, Mod-Severe pulmonary HTN -cardio eval. Dr. Benz. colmenares appreciated considering introduction of anticoagulation however given the patient's clinic status with extensive trauma, we await conversation with the surgical team prior to advancement 3. wrist injury/fall -Orthopedic consult placed to Dr. Segovia appreciated -PT evaluation -Right hand xray- nondisplaced distal radius fx -MRI pending as per surgical team 4. anemia -Consult placed to Heme/Onc, Dr. Andrew Colmenares appreciated will check retic count, b12, folate, ferritin to further characterize likely chronic disease from malignancy -stool occult blood pending -ldh, haptoglobin pending -retic count pending -iron studies pending -Consult placed to Dr. Andrew colmenares appreciated 5. Prostate Cancer -Consult placed to Heme/OncDr. Andrew appreciated castrate resistant LN and bone metastasis on outpatient Zytiga; can continue to hold given debility can restart once performance status improves. -Tamsulosin 0.4mg PO daily 6. GI/DVT ppx -scds -protonix 40 mg iv daily -crestor 5mg PO qd -PT eval for placement in rehab Case discussed with Dr. Madsen All management as per Dr. Madsen
[2017-07-24] MEDS: POLYETHYLENE GLYCOL 3350 17 GM/Dose PACKET PO SCH (10:02)
[2017-07-24] MEDS: Pantoprazole 40 mg EC Tab PO SCH (10:03)
[2017-07-24] MEDS: Potassium Chloride 20 mEq ER Tab PO SCH (10:03)
[2017-07-24 11:55] LABS: BASO # 0.1 K/uL (0.0-0.2); EOS # 0.3 K/uL (0.0-0.7); EOS % 5.3 % (0.0-4.0); HEMOGLOBIN 8.4 g/dL (12.0-18.0); LYMPH % 17.8 % (20.0-40.0); MEAN CELL VOLUME 90.1 fL (80.0-94.0); MEAN CORPUSCULAR HEMOGLOBIN 31.7 pg (27.0-31.0); MEAN CORPUSCULAR HGB CONC 35.2 g/dL (33.0-37.0); MEAN PLATELET VOLUME 8.5 fL (7.2-11.7); MONO # 0.5 K/uL (0.0-0.8); MONO % 8.6 % (0.0-10.0); NEUT # 3.7 K/uL (1.8-7.0); NEUT % 67.3 % (50.0-75.0); RBC 2.66 Mil/uL (4.40-5.90); WHITE BLOOD COUNT 5.5 K/uL (4.8-10.8)
[2017-07-24 12:06] LABS: ALB/GLOB RATIO 1.1 (1.0-2.1); ALBUMIN 2.4 g/dL (3.5-5.0); ALT/SGPT 16 U/L (21-72); AST/SGOT 19 U/L (17-59); BLOOD UREA NITROGEN 11 mg/dL (9-20); GFR AFRICAN-AMERICAN > 60; GFR NON-AFRICAN AMERICAN > 60
--- NOTE | 2017-07-24 12:24 | CP.PCM.PN ---
Subjective - Date & Time of Evaluation Date of Evaluation: 07/23/17 Time of Evaluation: 12:00 - Subjective Subjective: No complaints. Objective - Vital Signs/Intake and Output Vital Signs (last 24 hours): Temp Pulse Resp BP Pulse Ox 97.9 F 83 18 115/68 96 07/24/17 07:35 07/24/17 08:50 07/24/17 07:35 07/24/17 10:03 07/24/17 07:35 Intake and Output: 07/24/17 07/24/17 06:59 18:59 Intake Total 350 Balance 350 - Medications Medications: Current Medications Aspirin (Aspirin Chewable) 81 mg PO DAILY [facility] Last Admin: 07/24/17 10:03 Dose: 81 mg Carvedilol (Coreg) 6.25 mg PO BID [facility] Last Admin: 07/24/17 10:03 Dose: 6.25 mg Enalapril Maleate (Vasotec) 15 mg PO DAILY [facility] Last Admin: 07/24/17 10:03 Dose: 15 mg Pantoprazole Sodium (Protonix Ec Tab) 40 mg PO DAILY [facility] Last Admin: 07/24/17 10:03 Dose: 40 mg Polyethylene Glycol (Miralax) 17 gm PO DAILY [facility] Last Admin: 07/24/17 10:02 Dose: 17 gm Potassium Chloride (K-Dur 20 Meq Er Tab) 20 meq PO DAILY [facility] Last Admin: 07/24/17 10:03 Dose: 20 meq Rosuvastatin Calcium (Crestor) 5 mg PO HS [facility] Last Admin: 07/23/17 22:05 Dose: 5 mg Tamsulosin HCl (Flomax) 0.4 mg PO DAILY [facility] Last Admin: 07/24/17 10:03 Dose: 0.4 mg - Labs Labs: 07/24/17 11:32 07/24/17 11:32 PT 13.5 SECONDS (9.7-12.2) H 07/21/17 11:32 INR 1.2 07/21/17 11:32 APTT 31 SECONDS (21-34) 07/21/17 03:09 - Head Exam Head Exam: ATRAUMATIC - Eye Exam Eye Exam: Normal appearance - ENT Exam ENT Exam: Mucous Membranes Dry - Respiratory Exam Respiratory Exam: NORMAL BREATHING PATTERN - Cardiovascular Exam Cardiovascular Exam: +S1, +S2 - GI/Abdominal Exam GI & Abdominal Exam: Normal Bowel Sounds Assessment and Plan (1) 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 bone mets from prostate cancer Status: Acute
--- NOTE | 2017-07-24 12:25 | CP.PCM.PN ---
Subjective - Date & Time of Evaluation Date of Evaluation: 07/24/17 Time of Evaluation: 12:05 - Subjective Subjective: No complaints. Objective - Vital Signs/Intake and Output Vital Signs (last 24 hours): Temp Pulse Resp BP Pulse Ox 97.9 F 83 18 115/68 96 07/24/17 07:35 07/24/17 08:50 07/24/17 07:35 07/24/17 10:03 07/24/17 07:35 Intake and Output: 07/24/17 07/24/17 06:59 18:59 Intake Total 350 Balance 350 - Medications Medications: Current Medications Aspirin (Aspirin Chewable) 81 mg PO DAILY [facility] Last Admin: 07/24/17 10:03 Dose: 81 mg Carvedilol (Coreg) 6.25 mg PO BID [facility] Last Admin: 07/24/17 10:03 Dose: 6.25 mg Enalapril Maleate (Vasotec) 15 mg PO DAILY [facility] Last Admin: 07/24/17 10:03 Dose: 15 mg Pantoprazole Sodium (Protonix Ec Tab) 40 mg PO DAILY [facility] Last Admin: 07/24/17 10:03 Dose: 40 mg Polyethylene Glycol (Miralax) 17 gm PO DAILY [facility] Last Admin: 07/24/17 10:02 Dose: 17 gm Potassium Chloride (K-Dur 20 Meq Er Tab) 20 meq PO DAILY [facility] Last Admin: 07/24/17 10:03 Dose: 20 meq Rosuvastatin Calcium (Crestor) 5 mg PO HS [facility] Last Admin: 07/23/17 22:05 Dose: 5 mg Tamsulosin HCl (Flomax) 0.4 mg PO DAILY [facility] Last Admin: 07/24/17 10:03 Dose: 0.4 mg - Labs Labs: 07/24/17 11:32 07/24/17 11:32 PT 13.5 SECONDS (9.7-12.2) H 07/21/17 11:32 INR 1.2 07/21/17 11:32 APTT 31 SECONDS (21-34) 07/21/17 03:09 - Head Exam Head Exam: ATRAUMATIC - Eye Exam Eye Exam: Normal appearance - ENT Exam ENT Exam: Mucous Membranes Dry - Respiratory Exam Respiratory Exam: NORMAL BREATHING PATTERN - Cardiovascular Exam Cardiovascular Exam: +S1, +S2 - GI/Abdominal Exam GI & Abdominal Exam: Normal Bowel Sounds Assessment and Plan (1) 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
--- NOTE | 2017-07-24 22:22 | CP.PCM.PN ---
Subjective - Date & Time of Evaluation Date of Evaluation: 07/24/17 Time of Evaluation: 09:10 - Subjective Subjective: Patient seen and evaluated Comfortable Denies chest pain and dyspnea Objective - Vital Signs/Intake and Output Vital Signs (last 24 hours): Temp Pulse Resp BP Pulse Ox 97.4 F L 84 20 118/72 96 07/24/17 15:10 07/24/17 15:10 07/24/17 15:10 07/24/17 15:10 07/24/17 15:10 Intake and Output: 07/24/17 07/25/17 18:59 06:59 Intake Total 400 Output Total 1200 1000 Balance -800 -1000 - Medications Medications: Current Medications Aspirin (Aspirin Chewable) 81 mg PO DAILY [facility] Last Admin: 07/24/17 10:03 Dose: 81 mg Carvedilol (Coreg) 6.25 mg PO BID [facility] Last Admin: 07/24/17 18:46 Dose: 6.25 mg Enalapril Maleate (Vasotec) 15 mg PO DAILY [facility] Last Admin: 07/24/17 10:03 Dose: 15 mg Pantoprazole Sodium (Protonix Ec Tab) 40 mg PO DAILY [facility] Last Admin: 07/24/17 10:03 Dose: 40 mg Polyethylene Glycol (Miralax) 17 gm PO DAILY [facility] Last Admin: 07/24/17 10:02 Dose: 17 gm Potassium Chloride (K-Dur 20 Meq Er Tab) 20 meq PO DAILY [facility] Last Admin: 07/24/17 10:03 Dose: 20 meq Rosuvastatin Calcium (Crestor) 5 mg PO HS [facility] Last Admin: 07/24/17 22:07 Dose: 5 mg Tamsulosin HCl (Flomax) 0.4 mg PO DAILY [facility] Last Admin: 07/24/17 10:03 Dose: 0.4 mg - Labs Labs: 07/24/17 11:32 07/24/17 11:32 PT 13.5 SECONDS (9.7-12.2) H 07/21/17 11:32 INR 1.2 07/21/17 11:32 APTT 31 SECONDS (21-34) 07/21/17 03:09
[2017-07-25 08:40] LABS: BASO % 0.7 % (0.0-2.0); EOS # 0.3 K/uL (0.0-0.7); HEMOGLOBIN 8.9 g/dL (12.0-18.0); LYMPH # 1.2 K/uL (1.0-4.3); LYMPH % 17.5 % (20.0-40.0); MEAN CORPUSCULAR HEMOGLOBIN 31.2 pg (27.0-31.0); MEAN CORPUSCULAR HGB CONC 34.7 g/dL (33.0-37.0); MEAN PLATELET VOLUME 8.1 fL (7.2-11.7); MONO # 0.6 K/uL (0.0-0.8); MONO % 8.5 % (0.0-10.0); NEUT # 4.7 K/uL (1.8-7.0); NEUT % 69.3 % (50.0-75.0); RBC 2.86 Mil/uL (4.40-5.90); RED CELL DISTRIBUTION WIDTH 14.3 % (11.5-14.5); WHITE BLOOD COUNT 6.7 K/uL (4.8-10.8)
[2017-07-25 08:49] LABS: ALB/GLOB RATIO 1.1 (1.0-2.1); ALBUMIN 2.5 g/dL (3.5-5.0); ALT/SGPT 15 U/L (21-72); AST/SGOT 22 U/L (17-59); BLOOD UREA NITROGEN 12 mg/dL (9-20); CALCIUM 8.4 mg/dl (8.6-10.4); GFR AFRICAN-AMERICAN > 60; GFR NON-AFRICAN AMERICAN > 60
[2017-07-25 09:29] LABS: FERRITIN 73.7 ng/mL
[2017-07-25 10:00] LABS: FOLATE 11.4 ng/mL
[2017-07-25] MEDS: Potassium Chloride 20 mEq ER Tab PO SCH (10:00)
[2017-07-25] MEDS: Pantoprazole 40 mg EC Tab PO SCH (10:00)
[2017-07-25] MEDS: POLYETHYLENE GLYCOL 3350 17 GM/Dose PACKET PO SCH (10:02)
[2017-07-25] MEDS: Enoxaparin 80 mg Syringe SC SCH ×2 (11:16→23:10)
--- NOTE | 2017-07-25 11:17 | CP.PCM.PN ---
Subjective - Date & Time of Evaluation Date of Evaluation: 07/25/17 Time of Evaluation: 11:11 - Subjective Subjective: Progress Note for Dr. Madsen's Service Patient seen and examined at bedside this morning. He contacted his personal physician, Dr. Geeta Harvey and is requesting to be seen by him. As per cardio lovenox will be introduced x2 days and bridged to [facility] friday with [facility]. He states that he is well and does not have any acute complaints today. He denies chest pain/sob. Objective - Vital Signs/Intake and Output Vital Signs (last 24 hours): Temp Pulse Resp BP Pulse Ox 98.0 F 76 20 117/60 96 07/25/17 07:10 07/25/17 08:51 07/25/17 07:10 07/25/17 09:59 07/25/17 07:10 Intake and Output: 07/25/17 07/25/17 06:59 18:59 Intake Total 100 Output Total 2200 Balance -2100 - Medications Medications: Current Medications Aspirin (Aspirin Chewable) 81 mg PO DAILY [facility] Last Admin: 07/25/17 10:00 Dose: 81 mg Carvedilol (Coreg) 6.25 mg PO BID [facility] Last Admin: 07/25/17 10:00 Dose: 6.25 mg Enalapril Maleate (Vasotec) 15 mg PO DAILY [facility] Last Admin: 07/25/17 09:59 Dose: 15 mg Enoxaparin Sodium (Lovenox) 70 mg SC Q12H [facility] Pantoprazole Sodium (Protonix Ec Tab) 40 mg PO DAILY [facility] Last Admin: 07/25/17 10:00 Dose: 40 mg Polyethylene Glycol (Miralax) 17 gm PO DAILY [facility] Last Admin: 07/25/17 10:02 Dose: Not Given Potassium Chloride (K-Dur 20 Meq Er Tab) 20 meq PO DAILY [facility] Last Admin: 07/25/17 10:00 Dose: 20 meq Rosuvastatin Calcium (Crestor) 5 mg PO HS [facility] Last Admin: 07/24/17 22:07 Dose: 5 mg Tamsulosin HCl (Flomax) 0.4 mg PO DAILY [facility] Last Admin: 07/25/17 10:00 Dose: 0.4 mg - Labs Labs: 07/25/17 08:26 07/25/17 08:26 PT 13.5 SECONDS (9.7-12.2) H 07/21/17 11:32 INR 1.2 07/21/17 11:32 APTT 31 SECONDS (21-34) 07/21/17 03:09 - Head Exam Additional comments: extensive bruising and trauma to the face and neck on the left - Eye Exam Eye Exam: EOMI - ENT Exam ENT Exam: Mucous Membranes Moist - Respiratory Exam Respiratory Exam: Clear to Ausculation Bilateral, NORMAL BREATHING PATTERN - Cardiovascular Exam Cardiovascular Exam: Irregular Rhythm - GI/Abdominal Exam GI & Abdominal Exam: Soft. absent: Tenderness - Neurological Exam Neurological Exam: Alert, Awake, Oriented x3 - Psychiatric Exam Psychiatric exam: Normal Affect, Normal Mood - Skin Skin Exam: Dry, Warm Assessment and Plan - Assessment and Plan (Free Text) Plan: 1. Fall/Syncope with extensive head and neck trauma -NSTEMI suspected due to elevated tropinins-cardiology consult placed to Dr. Benz. colmenares appreciated. Trops: 0.1270, 0.1590, 0.1900 Ekg- abnormal -coreg 6.25 mg po bid -enalapril 15 mg po daily -crestor 5 mg po hs -asa 81 mg po daily -Orthopedic consult placed to Dr. Segovia appreciated No surgical intervention at this time for facial trauma 2. Hx of atrial fibrillation -coreg 6.25 mg po bid -ekg- abnormal -echo- LVH, 70%EF, Mod-Severe pulmonary HTN -cardio eval. Dr. Benz. colmenares appreciated Start lovenox x2 days with plan to bridge to [facility] on friday and d/c then 3. wrist injury/fall -Orthopedic consult placed to Dr. Segovia appreciated -PT evaluation -Right hand xray- nondisplaced distal radius fx -MRI pending as per surgical team 4. anemia -Consult placed to Heme/Onc, Dr. Andrew Colmenares appreciated will check retic count, b12, folate, ferritin to further characterize likely chronic disease from malignancy -stool occult blood pending -ldh, haptoglobin pending -retic count pending -iron studies pending -Consult placed to Dr. Andrew colmenares appreciated 5. Prostate Cancer -Consult placed to Heme/Onc, Dr. Andrew Colmenares appreciated castrate resistant LN and bone metastasis on outpatient Zytiga; can continue to hold given debility can restart once performance status improves. -Tamsulosin 0.4mg PO daily 6. GI/DVT ppx -scds -protonix 40 mg iv daily -crestor 5mg PO qd -PT eval for placement in rehab -miralax prn constipation Consult placed to Dr. Geeta Harvey at patients request as this is his private doctor. Case discussed with Dr. Madsen All management as per Dr. Madsen
--- NOTE | 2017-07-25 14:59 | CP.PCM.PN ---
Subjective - Date & Time of Evaluation Date of Evaluation: 07/25/17 Time of Evaluation: 14:56 - Subjective Subjective: PT SEEN AND EVAL'D BY TRAY SETTER, HOWEVER, ORTHO PAEMA, NOTIFIED ME THIS MORNING THAT ORTHO HAS NO CONTRAINDICATION TO ANTICOAGULATION. I NOTIFIED DR. GROSS. DR. GROSS CAME TO THE FLOOR AND DISCUSSED HIS PLAN WITH ME. PER DR. GROSS, START LOVENOX "FULL DOSE" THEN PLAN TO SWITCH TO PO ANTICOAGULATION ON FRIDAY. PER DR. GROSS HE IS ALSO PLANNING ON DOING CARDIAC CATH ON FRIDAY; FURTHER TREATMENT/MANAGEMENT WILL DEPEND ON CATH RESULTS PER HIM. HE STATES HE WILL DOCUMENT HIS PLAN IN PROGRESS NOTE. I NOTIFIED DR. UMAÑA OF THIS. NO FURTHER ORDERS. Objective - Vital Signs/Intake and Output Vital Signs (last 24 hours): Temp Pulse Resp BP Pulse Ox 98.0 F 76 20 117/60 96 07/25/17 07:10 07/25/17 08:51 07/25/17 07:10 07/25/17 09:59 07/25/17 07:10 Intake and Output: 07/25/17 07/25/17 06:59 18:59 Intake Total 100 Output Total 2200 Balance -2100 - Medications Medications: Current Medications Aspirin (Aspirin Chewable) 81 mg PO DAILY [facility] Last Admin: 07/25/17 10:00 Dose: 81 mg Carvedilol (Coreg) 6.25 mg PO BID [facility] Last Admin: 07/25/17 10:00 Dose: 6.25 mg Enalapril Maleate (Vasotec) 15 mg PO DAILY [facility] Last Admin: 07/25/17 09:59 Dose: 15 mg Enoxaparin Sodium (Lovenox) 70 mg SC Q12H [facility] Last Admin: 07/25/17 11:16 Dose: 70 mg Pantoprazole Sodium (Protonix Ec Tab) 40 mg PO DAILY [facility] Last Admin: 07/25/17 10:00 Dose: 40 mg Polyethylene Glycol (Miralax) 17 gm PO DAILY [facility] Last Admin: 07/25/17 10:02 Dose: Not Given Potassium Chloride (K-Dur 20 Meq Er Tab) 20 meq PO DAILY [facility] Last Admin: 07/25/17 10:00 Dose: 20 meq Rosuvastatin Calcium (Crestor) 5 mg PO HS [facility] Last Admin: 07/24/17 22:07 Dose: 5 mg Tamsulosin HCl (Flomax) 0.4 mg PO DAILY [facility] Last Admin: 07/25/17 10:00 Dose: 0.4 mg - Labs Labs: 07/25/17 08:26 07/25/17 08:26 PT 13.5 SECONDS (9.7-12.2) H 07/21/17 11:32 INR 1.2 07/21/17 11:32 APTT 31 SECONDS (21-34) 07/21/17 03:09
--- NOTE | 2017-07-25 22:44 | CON ---
DATE: 07/25/2017 HISTORY OF PRESENT ILLNESS: This is a 82-year-old white male, known to me for many years. The patient has history of coronary artery disease, irregular heart rate. The patient was having history of fall three days prior to the admission. The patient was seen in the emergency room and he was discharged home. The patient was found to have right wrist fracture. The patient was having generalized fatigue and weakness recently. He cannot stand up and walk. No history of chest pain. No shortness of breath. No fever or chills. REVIEW OF SYSTEMS: CARDIOVASCULAR SYSTEM: Negative for chest pain. RESPIRATORY SYSTEM: Negative for shortness of breath. GI SYSTEM: Negative for nausea, vomiting or abdominal pain. FIELD SERVICE TECHNICIAN POULTRY: The patient has history of fall and dizziness. No fever. : No urinary complain. PSYCHIATRIC: Psychiatrically, the patient is stable. All other systems are negative. PAST MEDICAL HISTORY: The patient has history of anemia, cardiac arrhythmia, hypertension, hypercholesterolemia. The patient has CA of prostate. MEDICATIONS: The patient's medications are reviewed by me. FAMILY HISTORY: No known inherited disease. SOCIAL HISTORY: Nonsmoker. No alcoholic. No IVD. ALLERGIES: NO KNOWN ALLERGY. PHYSICAL EXAMINATION: GENERAL: This is an 82-year-old white male, weak. Alert and oriented. VITAL SIGNS: Temperature 96, pulse 98, respirations 18 and blood pressure 149/91 mmHg. Pulse ox is 98% at room air. HEENT: Normal. JVP is flat. Carotid, no bruits. LUNGS: No rales, no wheezing. HEART: S1 and S1 normal. No gallop, no murmur. ABDOMEN: Soft, nontender. No organomegaly. FIELD SERVICE TECHNICIAN POULTRY: No focal neurological deficit. Left side of the face, the patient has hematoma. The patient also has right radius fracture. LAB WORK: Showed anemia 9.7, normal white cell count and platelets are 121,000, which is low. BUN was elevated 22; creatinine was 0.9, potassium was 3.2. EKG shows irregular heart rhythm, atrial fibrillation and the patient also has intermittent sinus rhythm. The patient has elevated troponin. IMPRESSION: 1. Elevated troponin. 2. Non-ST elevation myocardial infarction. 3. Atrial fibrillation. 4. Electrolyte imbalance. 5. Dehydration. 6. Rule out coronary artery disease. PLAN: Suggest, agree with present management. The patient may need complete cardiac evaluation by angiogram. Continue other medications. Scot Harvey MD
[2017-07-26 08:00] LABS: ALB/GLOB RATIO 1.1 (1.0-2.1); ALBUMIN 2.5 g/dL (3.5-5.0); ALT/SGPT 13 U/L (21-72); AST/SGOT 24 U/L (17-59); BLOOD UREA NITROGEN 15 mg/dL (9-20); CALCIUM 8.3 mg/dl (8.6-10.4); GFR AFRICAN-AMERICAN > 60; GFR NON-AFRICAN AMERICAN > 60
--- NOTE | 2017-07-26 08:24 | CP.PCM.PN ---
Subjective - Date & Time of Evaluation Date of Evaluation: 07/25/17 Time of Evaluation: 18:30 - Subjective Subjective: Ortho cleared for blood thinniers s/p Non STEMI A Fib Syncope Needs Cardiac cath prior to discharge Cath scheduled for Friday Therapeutic dose Lovenox ASA, Statins and B blockers for now Objective - Vital Signs/Intake and Output Vital Signs (last 24 hours): Temp Pulse Resp BP Pulse Ox 98.0 F 85 20 135/85 95 07/26/17 07:40 07/26/17 07:40 07/26/17 07:40 07/26/17 07:40 07/26/17 07:40 Intake and Output: 07/26/17 07/26/17 06:59 18:59 Output Total 2400 Balance -2400 - Medications Medications: Current Medications Aspirin (Aspirin Chewable) 81 mg PO DAILY [facility] Last Admin: 07/25/17 10:00 Dose: 81 mg Carvedilol (Coreg) 6.25 mg PO BID [facility] Last Admin: 07/25/17 17:51 Dose: 6.25 mg Enalapril Maleate (Vasotec) 15 mg PO DAILY [facility] Last Admin: 07/25/17 09:59 Dose: 15 mg Enoxaparin Sodium (Lovenox) 70 mg SC Q12H [facility] Last Admin: 07/25/17 23:10 Dose: 70 mg Pantoprazole Sodium (Protonix Ec Tab) 40 mg PO DAILY [facility] Last Admin: 07/25/17 10:00 Dose: 40 mg Polyethylene Glycol (Miralax) 17 gm PO DAILY [facility] Last Admin: 07/25/17 10:02 Dose: Not Given Potassium Chloride (K-Dur 20 Meq Er Tab) 20 meq PO DAILY [facility] Last Admin: 07/25/17 10:00 Dose: 20 meq Rosuvastatin Calcium (Crestor) 5 mg PO HS [facility] Last Admin: 07/25/17 22:51 Dose: 5 mg Tamsulosin HCl (Flomax) 0.4 mg PO DAILY [facility] Last Admin: 07/25/17 10:00 Dose: 0.4 mg - Labs Labs: 07/25/17 08:26 07/26/17 07:25 PT 13.5 SECONDS (9.7-12.2) H 07/21/17 11:32 INR 1.2 07/21/17 11:32 APTT 31 SECONDS (21-34) 07/21/17 03:09 Assessment and Plan - Assessment and Plan (Free Text) Assessment: Ortho cleared for blood thinniers s/p Non STEMI A Fib Syncope Needs Cardiac cath prior to discharge Cath scheduled for Friday Therapeutic dose Lovenox ASA, Statins and B blockers for now
[2017-07-26] MEDS ORDERED: Oxycodone/Acetaminophen 5/325 mg Tab PO PRN (08:29)
--- NOTE | 2017-07-26 10:57 | CP.PCM.PN ---
Subjective - Date & Time of Evaluation Date of Evaluation: 07/26/17 Time of Evaluation: 10:55 - Subjective Subjective: PT FEELS OK. NO CP. WEAKNESS PRESENT. NO SOB. Objective - Vital Signs/Intake and Output Vital Signs (last 24 hours): Temp Pulse Resp BP Pulse Ox 98.0 F 85 20 135/85 95 07/26/17 07:40 07/26/17 07:40 07/26/17 07:40 07/26/17 07:40 07/26/17 07:40 Intake and Output: 07/26/17 07/26/17 06:59 18:59 Output Total 2400 Balance -2400 - Medications Medications: Current Medications Acetaminophen (Tylenol 325mg Tab) 650 mg PO Q6 PRN PRN Reason: Pain, moderate (4-7) Last Admin: 07/26/17 09:01 Dose: 650 mg Aspirin (Aspirin Chewable) 81 mg PO DAILY [facility] Last Admin: 07/25/17 10:00 Dose: 81 mg Carvedilol (Coreg) 6.25 mg PO BID [facility] Last Admin: 07/25/17 17:51 Dose: 6.25 mg Enalapril Maleate (Vasotec) 15 mg PO DAILY [facility] Last Admin: 07/25/17 09:59 Dose: 15 mg Enoxaparin Sodium (Lovenox) 70 mg SC Q12H [facility] Last Admin: 07/25/17 23:10 Dose: 70 mg Ferric Sodium Gluconate Complex (Ferrlecit) 125 mg IVPB DAILY [facility] Stop: 08/03/17 11:01 Pantoprazole Sodium (Protonix Ec Tab) 40 mg PO DAILY [facility] Last Admin: 07/25/17 10:00 Dose: 40 mg Polyethylene Glycol (Miralax) 17 gm PO DAILY [facility] Last Admin: 07/25/17 10:02 Dose: Not Given Potassium Chloride (K-Dur 20 Meq Er Tab) 20 meq PO DAILY [facility] Last Admin: 07/25/17 10:00 Dose: 20 meq Rosuvastatin Calcium (Crestor) 5 mg PO HS [facility] Last Admin: 07/25/17 22:51 Dose: 5 mg Tamsulosin HCl (Flomax) 0.4 mg PO DAILY [facility] Last Admin: 07/25/17 10:00 Dose: 0.4 mg - Labs Labs: 07/25/17 08:26 06/09/18 07:25 PT 13.5 SECONDS (9.7-12.2) H 07/21/17 11:32 INR 1.2 07/21/17 11:32 APTT 31 SECONDS (21-34) 07/21/17 03:09 - Constitutional Appears: No Acute Distress, Chronically Ill - Eye Exam Eye Exam: EOMI, Normal appearance, PERRL Pupil Exam: NORMAL ACCOMODATION, PERRL - ENT Exam ENT Exam: Mucous Membranes Moist, Normal Exam - Neck Exam Neck Exam: Full ROM, Normal Inspection. absent: Lymphadenopathy - Respiratory Exam Respiratory Exam: Clear to Ausculation Bilateral, NORMAL BREATHING PATTERN - Cardiovascular Exam Cardiovascular Exam: Irregular Rhythm, +S1, +S2 - GI/Abdominal Exam GI & Abdominal Exam: Soft, Normal Bowel Sounds. absent: Tenderness - Extremities Exam Extremities Exam: Full ROM, Normal Capillary Refill, Normal Inspection. absent : Joint Swelling, Pedal Edema - Neurological Exam Neurological Exam: Alert, Awake, CN II-XII Intact, Normal Gait, Oriented x3 - Psychiatric Exam Psychiatric exam: Normal Affect, Normal Mood Assessment and Plan - Assessment and Plan (Free Text) Assessment: NON ST ELEVATION DE. ANEMIA. A. FIB. FRACTURE RT RADIUS. Plan: FOR IRON SUPPLEMENT. CATH ON . CT OTHER TREATMENT.
[2017-07-26] MEDS: Potassium Chloride 20 mEq ER Tab PO SCH (11:03)
[2017-07-26] MEDS: Pantoprazole 40 mg EC Tab PO SCH (11:03)
[2017-07-26] MEDS: Enoxaparin 80 mg Syringe SC SCH ×2 (11:04→21:42)
[2017-07-26] MEDS: POLYETHYLENE GLYCOL 3350 17 GM/Dose PACKET PO SCH (11:04)
[2017-07-26] MEDS: Ferric Sodium Gluconat Complex 62.5 mg/5 ml Vial IVPB SCH (11:36)
[2017-07-27 07:39] LABS: BASO # 0.1 K/uL (0.0-0.2); BASO % 0.8 % (0.0-2.0); EOS # 0.4 K/uL (0.0-0.7); EOS % 6.5 % (0.0-4.0); HEMOGLOBIN 9.3 g/dL (12.0-18.0); LYMPH # 1.4 K/uL (1.0-4.3); LYMPH % 22.3 % (20.0-40.0); MEAN CELL VOLUME 89.9 fL (80.0-94.0); MEAN CORPUSCULAR HEMOGLOBIN 31.2 pg (27.0-31.0); MEAN CORPUSCULAR HGB CONC 34.7 g/dL (33.0-37.0); MEAN PLATELET VOLUME 7.6 fL (7.2-11.7); MONO # 0.6 K/uL (0.0-0.8); MONO % 9.9 % (0.0-10.0); NEUT # 3.8 K/uL (1.8-7.0); NEUT % 60.5 % (50.0-75.0); RBC 2.99 Mil/uL (4.40-5.90); RED CELL DISTRIBUTION WIDTH 14.3 % (11.5-14.5); WHITE BLOOD COUNT 6.3 K/uL (4.8-10.8)
[2017-07-27 08:11] LABS: ALBUMIN 2.6 g/dL (3.5-5.0); ALT/SGPT 22 U/L (21-72); AST/SGOT 21 U/L (17-59); BLOOD UREA NITROGEN 16 mg/dL (9-20); CALCIUM 8.3 mg/dl (8.6-10.4); GFR AFRICAN-AMERICAN > 60; GFR NON-AFRICAN AMERICAN > 60
[2017-07-27] MEDS: Pantoprazole 40 mg EC Tab PO SCH (11:15)
[2017-07-27] MEDS: Potassium Chloride 20 mEq ER Tab PO SCH (11:16)
[2017-07-27] MEDS: Ferric Sodium Gluconat Complex 62.5 mg/5 ml Vial IVPB SCH (11:40)
[2017-07-27 12:29] LABS: INR 1.2; PROTHROMBIN TIME 12.6 SECONDS (9.7-12.2)
[2017-07-27] MEDS ORDERED: Magnesium Citrate Oral SOL (300 ml) PO ONE ×2 (13:00→16:00)
--- NOTE | 2017-07-27 13:01 | CP.PCM.CON ---
History of Present Illness - History of Present Illness History of Present Illness: COVERING DR JOSÉ 82 yo W male admitted following a syncopal episode at home in which he feel resulting in R wrist fracture and Left facial trauma with fractures and cervical spine injury. Patient was found to be in afib and had positive enzymes for an NC. Was placed on Lovenox and developed several episodes of BRBPR today when he went to defecate and leaking on floor when he walked. No CP, SOB or LOC. Reports he had a colonoscopy in October at [facility] [place] that was normal. Case discussed with Dr Dominguez who requests colonoscopy prior to cardiac cath that was scheduled for tomorrow. Review of Systems - EENT Additional comments: Pain from facial trauma - Cardiovascular Cardiovascular: Syncope. absent: Chest Pain, Dyspnea, Leg Edema - Gastrointestinal Gastrointestinal: As Per HPI. absent: Abdominal Pain, Diarrhea, Melena, Vomiting Past Patient History - Infectious Disease Hx of Infectious Diseases: None - Past Medical History & Family History Past Medical History?: Yes Past Family History: Reviewed and not pertinent - Past Social History Smoking Status: Never Smoked - CARDIAC Hx Cardiac Disorders: Yes Hx Hypercholesterolemia: Yes Hx Hypertension: Yes - PULMONARY Hx Respiratory Disorders: No - NEUROLOGICAL Hx Neurological Disorder: No - HEENT Hx HEENT Problems: No - RENAL Hx Chronic Kidney Disease: No - ENDOCRINE/METABOLIC Hx Endocrine Disorders: No - HEMATOLOGICAL/ONCOLOGICAL Hx Blood Disorders: Yes Hx Anemia: Yes - INTEGUMENTARY Hx Dermatological Problems: No - MUSCULOSKELETAL/RHEUMATOLOGICAL Hx Musculoskeletal Disorders: No Hx Falls: Yes - GASTROINTESTINAL Hx Gastrointestinal Disorders: No - GENITOURINARY/GYNECOLOGICAL Hx Genitourinary Disorders: Yes Hx Prostate Cancer: Yes - PSYCHIATRIC Hx Psychophysiologic Disorder: No Hx Substance Use: No - SURGICAL HISTORY Hx Surgeries: Yes Other/Comment: left arm tumor. ADNOIDECTOMY - ANESTHESIA Hx Anesthesia: Yes Hx Anesthesia Reactions: No Meds Allergies/Adverse Reactions: Allergies Allergy/AdvReac Type Severity Reaction Status Date / Time No Known Allergies Allergy Verified 07/20/17 11:39 - Medications Medications: Current Medications Acetaminophen (Tylenol 325mg Tab) 650 mg PO Q6 PRN PRN Reason: Pain, moderate (4-7) Last Admin: 07/27/17 08:13 Dose: 650 mg Carvedilol (Coreg) 6.25 mg PO BID [facility] Last Admin: 07/27/17 11:15 Dose: 6.25 mg Enalapril Maleate (Vasotec) 15 mg PO DAILY [facility] Last Admin: 07/26/17 11:04 Dose: Not Given Ferric Sodium Gluconate Complex (Ferrlecit) 125 mg IVPB DAILY [facility] Stop: 08/03/17 11:01 Last Admin: 07/26/17 11:36 Dose: 125 mg Pantoprazole Sodium (Protonix Ec Tab) 40 mg PO DAILY [facility] Last Admin: 07/27/17 11:15 Dose: 40 mg Polyethylene Glycol (Miralax) 17 gm PO DAILY [facility] Last Admin: 07/26/17 11:04 Dose: Not Given Potassium Chloride (Potassium Chloride Oral Soln) 20 meq PO DAILY [facility] Rosuvastatin Calcium (Crestor) 5 mg PO HS [facility] Last Admin: 07/26/17 21:41 Dose: 5 mg Tamsulosin HCl (Flomax) 0.4 mg PO DAILY [facility] Last Admin: 07/27/17 11:16 Dose: 0.4 mg Physical Exam - Head Exam Additional comments: Multiple abrasions and ecchymoses to Right facial area and jaw. - Eye Exam Eye Exam: EOMI, Periorbital swelling, PERRL - Respiratory Exam Respiratory Exam: NORMAL BREATHING PATTERN - Cardiovascular Exam Cardiovascular Exam: Irregular Rhythm, +S1 - GI/Abdominal Exam GI & Abdominal Exam: Normal Bowel Sounds, Soft. absent: Distended, Organomegaly , Rebound, Tenderness - Rectal Exam Rectal Exam: Deferred - Extremities Exam Extremities exam: Negative for: pedal edema, tenderness - Neurological Exam Neurological exam: Alert, CN II-XII Intact, Oriented x3 - Psychiatric Exam Psychiatric exam: Normal Affect, Normal Mood - Skin Skin Exam: Dry, Warm Results - Vital Signs Recent Vital Signs: Last Vital Signs Temp 97.2 F L 07/27/17 10:31 Pulse 95 H 07/27/17 10:31 Resp 20 07/27/17 10:31 BP 135/80 07/27/17 10:31 Pulse Ox 95 07/27/17 10:31 - Labs Result Diagrams: 07/27/17 07:34 07/27/17 07:34 Labs: Laboratory Results - last 24 hr 07/26/17 07/26/17 07/27/17 16:31 21:40 07:34 WBC 6.3 RBC 2.99 L Hgb 9.3 L Hct 26.9 L MCV 89.9 MCH 31.2 H MCHC 34.7 RDW 14.3 Plt Count 215 MPV 7.6 Neut % (Auto) 60.5 Lymph % (Auto) 22.3 [place] % (Auto) 9.9 Eos % (Auto) 6.5 H Baso % (Auto) 0.8 Neut # (Auto) 3.8 Lymph # (Auto) 1.4 [place] # (Auto) 0.6 Eos # (Auto) 0.4 Baso # (Auto) 0.1 PT INR Sodium Potassium Chloride Carbon Dioxide Anion Gap BUN Creatinine Est GFR ( Amer) Est GFR (Non-Af Amer) POC Glucose (mg/dL) 194 H 118 H Random Glucose Calcium Total Bilirubin AST ALT Alkaline Phosphatase Total Protein Albumin Globulin Albumin/Globulin Ratio 07/27/17 07/27/17 07/27/17 07:34 11:12 12:12 WBC RBC Hgb Hct MCV MCH MCHC RDW Plt Count MPV Neut % (Auto) Lymph % (Auto) [place] % (Auto) Eos % (Auto) Baso % (Auto) Neut # (Auto) Lymph # (Auto) [place] # (Auto) Eos # (Auto) Baso # (Auto) PT 12.6 H INR 1.2 Sodium 138 Potassium 4.0 Chloride 104 Carbon Dioxide 29 Anion Gap 9 L BUN 16 Creatinine 0.9 Est GFR ( Amer) > 60 Est GFR (Non-Af Amer) > 60 POC Glucose (mg/dL) 141 H Random Glucose 92 Calcium 8.3 L Total Bilirubin 0.5 AST 21 ALT 22 Alkaline Phosphatase 50 Total Protein 5.2 L Albumin 2.6 L Globulin 2.6 Albumin/Globulin Ratio 1.0 Assessment & Plan (1) Hematochezia Assessment and Plan: LGI bleeding in patient placed on anticoagulation for NSSTMI. r/o diverticular bleeding, ischemic colitis, hemorrhoidal bleeding, polyp or mass lesion. Reports colonoscopy done last year was uneventful but report not available here. Has h/o Prostate cancer as well. Cardiac clearance for colonoscopy preferrably before possible cardiac intervention requiring anti-platelet RX that will precipitate more bleeding. Prep for colonoscopy if cleared in am. Monitor cbc Status: Acute (2) Acute blood loss anemia Assessment and Plan: as above Status: Acute (3) NSTEMI (non-ST elevated myocardial infarction) Assessment and Plan: For cardiac cath when source of bleeding has been determined. Awaiting cardiac cath. Status: Acute (4) Afib Assessment and Plan: as per Dr Dominguez. May have precipitated his syncopal episode and resulted in rate related ischemia?? Status: Acute (5) Syncope and collapse Assessment and Plan: as above Status: Resolved
[2017-07-27] MEDS: POLYETHYLENE GLYCOL 3350 17 GM/Dose PACKET PO SCH (13:35)
[2017-07-27] MEDS: Enoxaparin 80 mg Syringe SC SCH (13:54)
[2017-07-27] MEDS ORDERED: Bisacodyl 5mg EC Tab PO ONE (17:00)
[2017-07-27] MEDS ORDERED: Peg-Electrolyte Oral Soln 4L (Golytely) PO ONE (18:00)
--- NOTE | 2017-07-27 21:52 | CP.PCM.PN ---
Subjective - Date & Time of Evaluation Date of Evaluation: 07/27/17 Time of Evaluation: 19:30 - Subjective Subjective: patient s/p Rectal bleed Anticoagulation held Denies chest pain and dyspnea Patient with hx of A Fib and NonSTMI Normal EF For Colonoscopy in am Assessed as moderate risk for cardiac events for Colonoscopy or EGD under conscious sedation If Colonoscopy negative will perform Cardiac cath Objective - Vital Signs/Intake and Output Vital Signs (last 24 hours): Temp Pulse Resp BP Pulse Ox 97.8 F 73 20 116/71 95 07/27/17 15:40 07/27/17 15:40 07/27/17 15:40 07/27/17 15:40 07/27/17 15:40 Intake and Output: 07/27/17 07/28/17 18:59 06:59 Output Total 4850 Balance -4850 - Medications Medications: Current Medications Acetaminophen (Tylenol 325mg Tab) 650 mg PO Q6 PRN PRN Reason: Pain, moderate (4-7) Last Admin: 07/27/17 08:13 Dose: 650 mg Carvedilol (Coreg) 6.25 mg PO BID [facility] Last Admin: 07/27/17 17:17 Dose: 6.25 mg Enalapril Maleate (Vasotec) 15 mg PO DAILY [facility] Last Admin: 07/27/17 13:37 Dose: Not Given Ferric Sodium Gluconate Complex (Ferrlecit) 125 mg IVPB DAILY [facility] Stop: 08/03/17 11:01 Last Admin: 07/27/17 11:40 Dose: 125 mg Pantoprazole Sodium (Protonix Ec Tab) 40 mg PO DAILY [facility] Last Admin: 07/27/17 11:15 Dose: 40 mg Polyethylene Glycol (Miralax) 17 gm PO DAILY [facility] Last Admin: 07/27/17 13:35 Dose: Not Given Polyethylene Glycol/Electrolytes (Golytely) 2,000 ml PO ONCE ONE Stop: 07/28/17 06:01 Potassium Chloride (Potassium Chloride Oral Soln) 20 meq PO DAILY [facility] Rosuvastatin Calcium (Crestor) 5 mg PO HS [facility] Last Admin: 07/26/17 21:41 Dose: 5 mg Tamsulosin HCl (Flomax) 0.4 mg PO DAILY [facility] Last Admin: 07/27/17 11:16 Dose: 0.4 mg - Labs Labs: 07/27/17 07:34 07/27/17 07:34 PT 12.6 SECONDS (9.7-12.2) H 07/27/17 12:12 INR 1.2 07/27/17 12:12 APTT 31 SECONDS (21-34) 07/21/17 03:09
[2017-07-28] MEDS ORDERED: Peg-Electrolyte Oral Soln 4L (Golytely) PO ONE (06:00)
[2017-07-28 07:28] LABS: BASO # 0.1 K/uL (0.0-0.2); BASO % 1.2 % (0.0-2.0); EOS # 0.4 K/uL (0.0-0.7); EOS % 6.8 % (0.0-4.0); HEMOGLOBIN 9.6 g/dL (12.0-18.0); LYMPH # 1.3 K/uL (1.0-4.3); LYMPH % 20.7 % (20.0-40.0); MEAN CELL VOLUME 90.3 fL (80.0-94.0); MEAN CORPUSCULAR HEMOGLOBIN 31.4 pg (27.0-31.0); MEAN CORPUSCULAR HGB CONC 34.8 g/dL (33.0-37.0); MEAN PLATELET VOLUME 7.8 fL (7.2-11.7); MONO # 0.7 K/uL (0.0-0.8); MONO % 11.5 % (0.0-10.0); NEUT # 3.7 K/uL (1.8-7.0); NEUT % 59.8 % (50.0-75.0); RBC 3.07 Mil/uL (4.40-5.90); RED CELL DISTRIBUTION WIDTH 14.7 % (11.5-14.5); WHITE BLOOD COUNT 6.2 K/uL (4.8-10.8)
[2017-07-28 07:30] LABS: INR 1.2; PROTHROMBIN TIME 12.6 SECONDS (9.7-12.2)
[2017-07-28 07:37] LABS: ALB/GLOB RATIO 1.2 (1.0-2.1); ALT/SGPT 32 U/L (21-72); AST/SGOT 36 U/L (17-59); BLOOD UREA NITROGEN 15 mg/dL (9-20); CALCIUM 8.6 mg/dl (8.6-10.4); GFR AFRICAN-AMERICAN > 60; GFR NON-AFRICAN AMERICAN > 60
--- NOTE | 2017-07-28 08:01 | PN ---
DATE: 07/27/2017 The patient has rectal bleeding. We will stop the Lovenox. Elton Madsen MD
[2017-07-28] MEDS ORDERED: Lactated Ringer's 1,000 ML IV ONE (08:20)
[2017-07-28] MEDS ORDERED: Propofol 10 mg/ml Inj (20 ML) ONE (08:23)
[2017-07-28] MEDS ORDERED: Etomidate 20 mg/10ml Inj IV ONE (09:13)
--- NOTE | 2017-07-28 09:44 | CP.PCM.PN ---
Subjective - Date & Time of Evaluation Date of Evaluation: 07/28/17 Time of Evaluation: 09:42 - Subjective Subjective: Patient denies having abdominal pain, nausea, and vomiting. He noted rectal bleeding while taking the colonoscopy prep last night. The colonoscopy was canceled by anesthesiology. Objective - Vital Signs/Intake and Output Vital Signs (last 24 hours): Temp Pulse Resp BP Pulse Ox 97.4 F L 78 20 130/81 96 07/28/17 07:15 07/28/17 07:15 07/28/17 07:15 07/28/17 07:15 07/28/17 07:15 Intake and Output: 07/28/17 07/28/17 06:59 18:59 Intake Total 400 Output Total 450 Balance -50 - Medications Medications: Current Medications Acetaminophen (Tylenol 325mg Tab) 650 mg PO Q6 PRN PRN Reason: Pain, moderate (4-7) Last Admin: 07/27/17 08:13 Dose: 650 mg Carvedilol (Coreg) 6.25 mg PO BID [facility] Last Admin: 07/27/17 17:17 Dose: 6.25 mg Enalapril Maleate (Vasotec) 15 mg PO DAILY [facility] Last Admin: 07/27/17 13:37 Dose: Not Given Ferric Sodium Gluconate Complex (Ferrlecit) 125 mg IVPB DAILY [facility] Stop: 08/03/17 11:01 Last Admin: 07/27/17 11:40 Dose: 125 mg Pantoprazole Sodium (Protonix Ec Tab) 40 mg PO DAILY [facility] Last Admin: 07/27/17 11:15 Dose: 40 mg Polyethylene Glycol (Miralax) 17 gm PO DAILY [facility] Last Admin: 07/27/17 13:35 Dose: Not Given Potassium Chloride (Potassium Chloride Oral Soln) 20 meq PO DAILY [facility] Rosuvastatin Calcium (Crestor) 5 mg PO HS [facility] Last Admin: 07/27/17 22:03 Dose: 5 mg Tamsulosin HCl (Flomax) 0.4 mg PO DAILY [facility] Last Admin: 07/27/17 11:16 Dose: 0.4 mg - Labs Labs: 07/28/17 07:04 07/28/17 07:04 PT 12.6 SECONDS (9.7-12.2) H 07/28/17 07:04 INR 1.2 07/28/17 07:04 APTT 34 SECONDS (21-34) 07/28/17 07:04 - Constitutional Appears: No Acute Distress - Head Exam Additional comments: Ecchymosis left cheek, healing laceration left nondenominational - Neck Exam Neck Exam: absent: Lymphadenopathy, Thyromegaly - Respiratory Exam Respiratory Exam: NORMAL BREATHING PATTERN. absent: Rales, Rhonchi, Wheezes - Cardiovascular Exam Cardiovascular Exam: REGULAR RHYTHM, +S1, +S2. absent: Gallop, Rubs, Murmur - GI/Abdominal Exam GI & Abdominal Exam: Normal Bowel Sounds. absent: Tenderness, Mass, Organomegaly - Rectal Exam Rectal Exam: Deferred - Extremities Exam Extremities Exam: absent: Calf Tenderness, Pedal Edema Assessment and Plan (1) Hematochezia Assessment & Plan: Colonoscopy and EGD were canceled today. Will reschedule for later in the week. Status: Acute
[2017-07-28] MEDS: Ferric Sodium Gluconat Complex 62.5 mg/5 ml Vial IVPB SCH (09:46)
[2017-07-28] MEDS: POLYETHYLENE GLYCOL 3350 17 GM/Dose PACKET PO SCH (09:59)
[2017-07-28] MEDS: Pantoprazole 40 mg EC Tab PO SCH ×2 (09:59→15:21)
[2017-07-28] MEDS: Potassium Chloride 20 mEq/15 ml LIQ UD PO SCH ×2 (09:59→15:21)
[2017-07-28] MEDS ORDERED: Midazolam 2 MG/2 ML VIAL ONE (10:36)
--- NOTE | 2017-07-28 11:34 | CP.PCM.PN ---
Subjective - Date & Time of Evaluation Date of Evaluation: 07/28/17 Time of Evaluation: 11:30 - Subjective Subjective: Progress note. Attending: Dr. Madsen Pt seen and examined at bedside. No acute distress. No events overnight. Pt going for cardiac cath today. No complaints currently. Objective - Vital Signs/Intake and Output Vital Signs (last 24 hours): Temp Pulse Resp BP Pulse Ox 97.4 F L 82 20 139/75 94 L 07/28/17 07:15 07/28/17 09:48 07/28/17 09:48 07/28/17 09:59 07/28/17 09:48 Intake and Output: 07/28/17 07/28/17 06:59 18:59 Intake Total 400 Output Total 450 Balance -50 - Medications Medications: Current Medications Acetaminophen (Tylenol 325mg Tab) 650 mg PO Q6 PRN PRN Reason: Pain, moderate (4-7) Last Admin: 07/27/17 08:13 Dose: 650 mg Carvedilol (Coreg) 6.25 mg PO BID [facility] Last Admin: 07/28/17 09:44 Dose: 6.25 mg Enalapril Maleate (Vasotec) 5 mg PO DAILY [facility] Ferric Sodium Gluconate Complex (Ferrlecit) 125 mg IVPB DAILY [facility] Stop: 08/03/17 11:01 Last Admin: 07/28/17 09:46 Dose: 125 mg Pantoprazole Sodium (Protonix Ec Tab) 40 mg PO DAILY [facility] Last Admin: 07/28/17 09:59 Dose: Not Given Polyethylene Glycol (Miralax) 17 gm PO DAILY [facility] Last Admin: 07/28/17 09:59 Dose: Not Given Potassium Chloride (Potassium Chloride Oral Soln) 20 meq PO DAILY [facility] Last Admin: 07/28/17 09:59 Dose: Not Given Rosuvastatin Calcium (Crestor) 5 mg PO HS [facility] Last Admin: 07/27/17 22:03 Dose: 5 mg Tamsulosin HCl (Flomax) 0.4 mg PO DAILY [facility] Last Admin: 07/28/17 09:59 Dose: Not Given - Labs Labs: 07/28/17 07:04 07/28/17 07:04 PT 12.6 SECONDS (9.7-12.2) H 07/28/17 07:04 INR 1.2 07/28/17 07:04 APTT 34 SECONDS (21-34) 07/28/17 07:04 - Constitutional Appears: Non-toxic, No Acute Distress - Head Exam Head Exam: NORMOCEPHALIC. absent: ATRAUMATIC, NORMAL INSPECTION - Eye Exam Eye Exam: EOMI - ENT Exam ENT Exam: Mucous Membranes Moist - Neck Exam Neck Exam: Full ROM, Normal Inspection - Respiratory Exam Respiratory Exam: NORMAL BREATHING PATTERN. absent: Respiratory Distress - Cardiovascular Exam Cardiovascular Exam: +S1, +S2 - GI/Abdominal Exam GI & Abdominal Exam: Soft, Normal Bowel Sounds. absent: Tenderness - Extremities Exam Extremities Exam: Full ROM, Normal Inspection - Back Exam Back Exam: NORMAL INSPECTION - Neurological Exam Neurological Exam: Alert, Awake, Oriented x3 - Psychiatric Exam Psychiatric exam: Normal Affect, Normal Mood - Skin Skin Exam: Dry, Intact, Normal Color, Warm Assessment and Plan - Assessment and Plan (Free Text) Assessment: 1. Rectal bleed -pt to go for colonoscopy -holding anticoagulation 2. Fall/Syncope with extensive head and neck trauma -NSTEMI suspected due to elevated tropinins-cardiology consult placed to Dr. Benz. colmenares appreciated. Trops: 0.1270, 0.1590, 0.1900 Ekg- abnormal -coreg 6.25 mg po bid -enalapril 15 mg po daily>> decreasing to 5 mg po daily -crestor 5 mg po hs -asa 81 mg po daily - on hold -Orthopedic consult placed to Dr. Segovia appreciated No surgical intervention at this time for facial trauma -pt had cardiac cath today with Dr. Dominguez -recommends continued medical management 2. Hx of atrial fibrillation -coreg 6.25 mg po bid -ekg- abnormal -echo- LVH, 70%EF, Mod-Severe pulmonary HTN -cardio eval. Dr. Benz. colmenares appreciated Start lovenox x2 days with plan to bridge to [facility] on friday and d/c then 3. wrist injury/fall -Orthopedic consult placed to Dr. Segovia appreciated -PT evaluation -Right hand xray- nondisplaced distal radius fx -MRI pending as per surgical team 4. anemia -Consult placed to Heme/Onc, Dr. Andrew Colmenares appreciated will check retic count, b12, folate, ferritin to further characterize likely chronic disease from malignancy -pt did have episode of rectal bleeding -Consult placed to Dr. Andrew colmenares appreciated 5. Prostate Cancer -Consult placed to Heme/Onc, Dr. Andrew Colmenares appreciated -castration resistant -LN and bone metastasis -on outpatient Zytiga; can continue to hold given debility -can restart once performance status improves. -Tamsulosin 0.4mg PO daily 6. GI/DVT ppx -scds -protonix 40 mg iv daily -crestor 5mg PO qd -PT eval for placement in rehab -miralax prn constipation Consult placed to Dr. Geeta Harvey at patient's request as this is his private doctor. Case discussed with Dr. Madsen All management as per Dr. Madsen
--- NOTE | 2017-07-28 11:48 | CP.PCM.PN ---
Subjective - Date & Time of Evaluation Date of Evaluation: 07/27/17 Time of Evaluation: 12:00 - Subjective Subjective: NO CHEST PAIN NO SOB. C/O RECTAL BLEED. ANEMIA PRESENT. Objective - Vital Signs/Intake and Output Vital Signs (last 24 hours): Temp Pulse Resp BP Pulse Ox 97.4 F L 82 20 139/75 94 L 07/28/17 07:15 07/28/17 09:48 07/28/17 09:48 07/28/17 09:59 07/28/17 09:48 Intake and Output: 07/28/17 07/28/17 06:59 18:59 Intake Total 400 Output Total 450 Balance -50 - Medications Medications: Current Medications Acetaminophen (Tylenol 325mg Tab) 650 mg PO Q6 PRN PRN Reason: Pain, moderate (4-7) Last Admin: 07/27/17 08:13 Dose: 650 mg Carvedilol (Coreg) 6.25 mg PO BID [facility] Last Admin: 07/28/17 09:44 Dose: 6.25 mg Enalapril Maleate (Vasotec) 5 mg PO DAILY [facility] Ferric Sodium Gluconate Complex (Ferrlecit) 125 mg IVPB DAILY [facility] Stop: 08/03/17 11:01 Last Admin: 07/28/17 09:46 Dose: 125 mg Pantoprazole Sodium (Protonix Ec Tab) 40 mg PO DAILY [facility] Last Admin: 07/28/17 09:59 Dose: Not Given Polyethylene Glycol (Miralax) 17 gm PO DAILY [facility] Last Admin: 07/28/17 09:59 Dose: Not Given Potassium Chloride (Potassium Chloride Oral Soln) 20 meq PO DAILY [facility] Last Admin: 07/28/17 09:59 Dose: Not Given Rosuvastatin Calcium (Crestor) 5 mg PO HS [facility] Last Admin: 07/27/17 22:03 Dose: 5 mg Tamsulosin HCl (Flomax) 0.4 mg PO DAILY [facility] Last Admin: 07/28/17 09:59 Dose: Not Given - Labs Labs: 07/28/17 07:04 07/28/17 07:04 PT 12.6 SECONDS (9.7-12.2) H 07/28/17 07:04 INR 1.2 07/28/17 07:04 APTT 34 SECONDS (21-34) 07/28/17 07:04 - Constitutional Appears: No Acute Distress, Chronically Ill - Eye Exam Eye Exam: EOMI, Normal appearance, PERRL Pupil Exam: NORMAL ACCOMODATION, PERRL - ENT Exam ENT Exam: Mucous Membranes Moist, Normal Exam - Neck Exam Neck Exam: Full ROM, Normal Inspection. absent: Lymphadenopathy - Respiratory Exam Respiratory Exam: Clear to Ausculation Bilateral, NORMAL BREATHING PATTERN - Cardiovascular Exam Cardiovascular Exam: REGULAR RHYTHM, +S1, +S2. absent: Murmur - GI/Abdominal Exam GI & Abdominal Exam: Soft, Normal Bowel Sounds. absent: Tenderness - Extremities Exam Extremities Exam: Full ROM, Normal Capillary Refill, Normal Inspection. absent : Joint Swelling, Pedal Edema - Back Exam Back Exam: NORMAL INSPECTION Assessment and Plan - Assessment and Plan (Free Text) Assessment: GI BLEED. NSTEMI. R/O CAD. Plan: FOR COLONOSCOPY AND CARDIAC CATH.
[2017-07-28] MEDS ORDERED: Iohexol 350mg/ml 100 ML ONE (12:39)
--- NOTE | 2017-07-28 12:58 | CP.PCM.PN ---
Subjective - Date & Time of Evaluation Date of Evaluation: 07/28/17 Time of Evaluation: 12:56 - Subjective Subjective: Patient s/p Cath 1. L Main: patent 2. LAD/Diags: Patent 3. L Cx: Distal 60% 4. RCA: Dominnat and patent 5. EF: 60% Impression: Non obstructive coronaries Normal EF Medical management Patient cleared for GI procedures including Endoscopy and Colonoscopy Objective - Vital Signs/Intake and Output Vital Signs (last 24 hours): Temp Pulse Resp BP Pulse Ox 97.4 F L 82 20 139/75 94 L 07/28/17 07:15 07/28/17 09:48 07/28/17 09:48 07/28/17 09:59 07/28/17 09:48 Intake and Output: 07/28/17 07/28/17 06:59 18:59 Intake Total 400 Output Total 450 Balance -50 - Medications Medications: Current Medications Acetaminophen (Tylenol 325mg Tab) 650 mg PO Q6 PRN PRN Reason: Pain, moderate (4-7) Last Admin: 07/27/17 08:13 Dose: 650 mg Carvedilol (Coreg) 6.25 mg PO BID [facility] Last Admin: 07/28/17 09:44 Dose: 6.25 mg Enalapril Maleate (Vasotec) 5 mg PO DAILY [facility] Ferric Sodium Gluconate Complex (Ferrlecit) 125 mg IVPB DAILY [facility] Stop: 08/03/17 11:01 Last Admin: 07/28/17 09:46 Dose: 125 mg Pantoprazole Sodium (Protonix Ec Tab) 40 mg PO DAILY [facility] Last Admin: 07/28/17 09:59 Dose: Not Given Polyethylene Glycol (Miralax) 17 gm PO DAILY [facility] Last Admin: 07/28/17 09:59 Dose: Not Given Potassium Chloride (Potassium Chloride Oral Soln) 20 meq PO DAILY [facility] Last Admin: 07/28/17 09:59 Dose: Not Given Rosuvastatin Calcium (Crestor) 5 mg PO HS [facility] Last Admin: 07/27/17 22:03 Dose: 5 mg Tamsulosin HCl (Flomax) 0.4 mg PO DAILY [facility] Last Admin: 07/28/17 09:59 Dose: Not Given - Labs Labs: 07/28/17 07:04 07/28/17 07:04 PT 12.6 SECONDS (9.7-12.2) H 07/28/17 07:04 INR 1.2 07/28/17 07:04 APTT 34 SECONDS (21-34) 07/28/17 07:04
--- NOTE | 2017-07-28 21:18 | CP.PCM.PN ---
Subjective - Date & Time of Evaluation Date of Evaluation: 07/28/17 Time of Evaluation: 18:00 - Subjective Subjective: No complaints, events noted. Objective - Vital Signs/Intake and Output Vital Signs (last 24 hours): Temp Pulse Resp BP Pulse Ox 98.1 F 83 18 111/63 95 07/28/17 15:00 07/28/17 15:00 07/28/17 15:00 07/28/17 15:00 07/28/17 15:00 Intake and Output: 07/28/17 07/29/17 18:59 06:59 Output Total 850 Balance -850 - Medications Medications: Current Medications Acetaminophen (Tylenol 325mg Tab) 650 mg PO Q6 PRN PRN Reason: Pain, moderate (4-7) Last Admin: 07/27/17 08:13 Dose: 650 mg Carvedilol (Coreg) 6.25 mg PO BID [facility] Last Admin: 07/28/17 18:44 Dose: 6.25 mg Enalapril Maleate (Vasotec) 5 mg PO DAILY [facility] Ferric Sodium Gluconate Complex (Ferrlecit) 125 mg IVPB DAILY [facility] Stop: 08/03/17 11:01 Last Admin: 07/28/17 09:46 Dose: 125 mg Pantoprazole Sodium (Protonix Ec Tab) 40 mg PO DAILY [facility] Last Admin: 07/28/17 15:21 Dose: 40 mg Polyethylene Glycol (Miralax) 17 gm PO DAILY [facility] Last Admin: 07/28/17 09:59 Dose: Not Given Potassium Chloride (Potassium Chloride Oral Soln) 20 meq PO DAILY [facility] Last Admin: 07/28/17 15:21 Dose: 20 meq Rosuvastatin Calcium (Crestor) 5 mg PO [facility] Last Admin: 07/27/17 22:03 Dose: 5 mg Tamsulosin HCl (Flomax) 0.4 mg PO DAILY [facility] Last Admin: 07/28/17 15:21 Dose: 0.4 mg - Labs Labs: 07/28/17 07:04 07/28/17 07:04 PT 12.6 SECONDS (9.7-12.2) H 07/28/17 07:04 INR 1.2 07/28/17 07:04 APTT 34 SECONDS (21-34) 07/28/17 07:04 - Head Exam Additional comments: Facial ecchymosis - ENT Exam ENT Exam: Mucous Membranes Dry - Respiratory Exam Respiratory Exam: NORMAL BREATHING PATTERN - Cardiovascular Exam Cardiovascular Exam: +S1, +S2 - GI/Abdominal Exam GI & Abdominal Exam: Normal Bowel Sounds Assessment and Plan (1) 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
[2017-07-29 07:00] LABS: BASO # 0.1 K/uL (0.0-0.2); BASO % 1.1 % (0.0-2.0); EOS # 0.4 K/uL (0.0-0.7); EOS % 6.1 % (0.0-4.0); HEMOGLOBIN 8.7 g/dL (12.0-18.0); LYMPH # 1.4 K/uL (1.0-4.3); LYMPH % 20.6 % (20.0-40.0); MEAN CELL VOLUME 90.1 fL (80.0-94.0); MEAN CORPUSCULAR HEMOGLOBIN 31.4 pg (27.0-31.0); MEAN CORPUSCULAR HGB CONC 34.8 g/dL (33.0-37.0); MEAN PLATELET VOLUME 7.5 fL (7.2-11.7); MONO # 0.8 K/uL (0.0-0.8); MONO % 11.3 % (0.0-10.0); NEUT # 4.3 K/uL (1.8-7.0); NEUT % 60.9 % (50.0-75.0); RBC 2.78 Mil/uL (4.40-5.90); RED CELL DISTRIBUTION WIDTH 14.6 % (11.5-14.5)
[2017-07-29 07:37] LABS: ALB/GLOB RATIO 1.2 (1.0-2.1); ALBUMIN 2.8 g/dL (3.5-5.0); ALT/SGPT 43 U/L (21-72); AST/SGOT 47 U/L (17-59); BLOOD UREA NITROGEN 17 mg/dL (9-20); CALCIUM 8.3 mg/dl (8.6-10.4); GFR AFRICAN-AMERICAN > 60; GFR NON-AFRICAN AMERICAN > 60
--- NOTE | 2017-07-29 09:08 | CP.PCM.PN ---
Subjective - Date & Time of Evaluation Date of Evaluation: 07/29/17 Time of Evaluation: 09:08 - Subjective Subjective: Patient states that pain in wrist is well controlled. He has no new complaints. Denies numbness/tingling Review of Systems - Review of Systems All systems: reviewed and no additional remarkable complaints except - Cardiovascular Cardiovascular: UNREMARKABLE - Respiratory Respiratory: UNREMARKABLE - Gastrointestinal Additional comments: BRBPR yesterday - Musculoskeletal Musculoskeletal: As Par HPI - Integumentary Additional comments: hand wounds - Neurological Neurological: As Per HPI - Hematologic/Lymphatic Hematologic: UNREMARKABLE Objective - Vital Signs/Intake and Output Vital Signs (last 24 hours): Temp Pulse Resp BP Pulse Ox 98.1 F 74 18 141/72 96 07/29/17 07:30 07/29/17 07:31 07/29/17 07:30 07/29/17 07:30 07/29/17 07:30 Intake and Output: 07/29/17 07/29/17 06:59 18:59 Output Total 1850 Balance -1850 - Medications Medications: Current Medications Acetaminophen (Tylenol 325mg Tab) 650 mg PO Q6 PRN PRN Reason: Pain, moderate (4-7) Last Admin: 07/27/17 08:13 Dose: 650 mg Carvedilol (Coreg) 6.25 mg PO BID [facility] Last Admin: 07/28/17 18:44 Dose: 6.25 mg Enalapril Maleate (Vasotec) 5 mg PO DAILY [facility] Ferric Sodium Gluconate Complex (Ferrlecit) 125 mg IVPB DAILY [facility] Stop: 08/03/17 11:01 Last Admin: 07/28/17 09:46 Dose: 125 mg Pantoprazole Sodium (Protonix Ec Tab) 40 mg PO DAILY [facility] Last Admin: 07/28/17 15:21 Dose: 40 mg Polyethylene Glycol (Miralax) 17 gm PO DAILY [facility] Last Admin: 07/28/17 09:59 Dose: Not Given Potassium Chloride (Potassium Chloride Oral Soln) 20 meq PO DAILY [facility] Last Admin: 07/28/17 15:21 Dose: 20 meq Rosuvastatin Calcium (Crestor) 5 mg PO HS [facility] Last Admin: 07/28/17 21:56 Dose: 5 mg Tamsulosin HCl (Flomax) 0.4 mg PO DAILY [facility] Last Admin: 07/28/17 15:21 Dose: 0.4 mg - Labs Labs: 07/29/17 06:53 07/29/17 06:53 PT 12.6 SECONDS (9.7-12.2) H 07/28/17 07:04 INR 1.2 07/28/17 07:04 APTT 34 SECONDS (21-34) 07/28/17 07:04 - Constitutional Appears: Well, No Acute Distress - Head Exam Additional comments: ecchymosis improving - Neck Exam Neck Exam: Full ROM - Respiratory Exam Respiratory Exam: NORMAL BREATHING PATTERN - Cardiovascular Exam Additional comments: +radial pulse - Extremities Exam Additional comments: right hand: dorsal hand wounds healingn well. No erythema. Swelling resolved. + Radial pulse, sensation intact, +ROM fingers, thumb. slightly stiff to elbow extension - Neurological Exam Neurological Exam: Alert, Awake, Oriented x3 Neuro motor strength exam: Right Upper Extremity: 5 - Psychiatric Exam Psychiatric exam: Normal Affect, Normal Mood - Skin Skin Exam: Normal Color, Warm Assessment and Plan (1) Fracture of right distal radius Assessment & Plan: short arm cast applied f/u xrays ordered NWB to right wrist d/w Dr. Avilez, agrees with above Status: Acute (2) Abrasion of right hand Assessment & Plan: healing well, so signs of infection Status: Acute Procedures Attestation:: I certify that I have explained the specified Operation(s) or Procedure(s), risks, benefits and reasonable alternatives to the Patient and/or other person responsible. The opportunity was given to ask questions and all questions answered - Orthopedic Splinting/Casting Injury #1 Side: right Upper Extremity Injury Location: wrist (right well padded short arm cast, NVID pre and post cast application, patient tolerated well)
[2017-07-29] MEDS: Pantoprazole 40 mg EC Tab PO SCH (11:22)
[2017-07-29] MEDS: Potassium Chloride 20 mEq/15 ml LIQ UD PO SCH (11:26)
[2017-07-29] MEDS: Ferric Sodium Gluconat Complex 62.5 mg/5 ml Vial IVPB SCH (11:28)
--- NOTE | 2017-07-29 11:28 | RAD ---
PROCEDURE: Right Wrist Radiographs. Three views of the right wrist performed through a fiberglass cast which obscures fine soft tissue and bone detail. Previously described fracture is less well appreciated on this study HISTORY: Distal radius fracture follow-up COMPARISON: None. FINDINGS: BONES: Previously described possible fracture line the along the ulnar aspect distal radius poorly seen on this exam JOINTS: Mild degenerative osteoarthritis of the wall to from prior exam. SOFT TISSUES: Normal. OTHER FINDINGS: None. IMPRESSION: Overlying fiberglass cast obscures fine soft tissue and bone detail. Previously described possible fracture line the along the ulnar aspect distal radius poorly seen on this exam
--- NOTE | 2017-07-29 11:31 | CP.PCM.PN ---
Subjective - Date & Time of Evaluation Date of Evaluation: 07/29/17 Time of Evaluation: 16:00 - Subjective Subjective: Progress note. Attending: Dr. Madsen Pt seen and examined at bedside. No acute distress. No fever,s chills, vomiting diarrhea. Medical management prer Alberto Objective - Vital Signs/Intake and Output Vital Signs (last 24 hours): Temp Pulse Resp BP Pulse Ox 98.1 F 74 18 141/72 96 07/29/17 07:30 07/29/17 07:31 07/29/17 07:30 07/29/17 07:30 07/29/17 07:30 Intake and Output: 07/29/17 07/29/17 06:59 18:59 Output Total 1850 Balance -1850 - Medications Medications: Current Medications Acetaminophen (Tylenol 325mg Tab) 650 mg PO Q6 PRN PRN Reason: Pain, moderate (4-7) Last Admin: 07/27/17 08:13 Dose: 650 mg Carvedilol (Coreg) 6.25 mg PO BID [facility] Last Admin: 07/28/17 18:44 Dose: 6.25 mg Enalapril Maleate (Vasotec) 5 mg PO DAILY [facility] Ferric Sodium Gluconate Complex (Ferrlecit) 125 mg IVPB DAILY [facility] Stop: 08/03/17 11:01 Last Admin: 07/28/17 09:46 Dose: 125 mg Pantoprazole Sodium (Protonix Ec Tab) 40 mg PO DAILY [facility] Last Admin: 07/28/17 15:21 Dose: 40 mg Polyethylene Glycol (Miralax) 17 gm PO DAILY [facility] Last Admin: 07/28/17 09:59 Dose: Not Given Potassium Chloride (Potassium Chloride Oral Soln) 20 meq PO DAILY [facility] Last Admin: 07/28/17 15:21 Dose: 20 meq Rosuvastatin Calcium (Crestor) 5 mg PO HS [facility] Last Admin: 07/28/17 21:56 Dose: 5 mg Tamsulosin HCl (Flomax) 0.4 mg PO DAILY [facility] Last Admin: 07/28/17 15:21 Dose: 0.4 mg - Labs Labs: 07/29/17 06:53 07/29/17 06:53 PT 12.6 SECONDS (9.7-12.2) H 07/28/17 07:04 INR 1.2 07/28/17 07:04 APTT 34 SECONDS (21-34) 07/28/17 07:04 - Constitutional Appears: Non-toxic, No Acute Distress - Head Exam Head Exam: NORMOCEPHALIC. absent: ATRAUMATIC, NORMAL INSPECTION - Eye Exam Eye Exam: EOMI Pupil Exam: NORMAL ACCOMODATION - ENT Exam ENT Exam: Mucous Membranes Moist - Neck Exam Neck Exam: Full ROM, Normal Inspection - Respiratory Exam Respiratory Exam: NORMAL BREATHING PATTERN. absent: Respiratory Distress - Cardiovascular Exam Cardiovascular Exam: +S1, +S2 - GI/Abdominal Exam GI & Abdominal Exam: Soft, Normal Bowel Sounds. absent: Tenderness - Psychiatric Exam Psychiatric exam: Normal Affect, Normal Mood - Skin Skin Exam: Dry, Intact, Normal Color, Warm Assessment and Plan - Assessment and Plan (Free Text) Assessment: 1. Rectal bleed -pt to go for colonoscopy, will discuss with Dr. Brown -holding anticoagulation -no more rectal bleeding today 2. Fall/Syncope with extensive head and neck trauma -NSTEMI suspected due to elevated tropinins-cardiology consult placed to Dr. Benz. colmenares appreciated. Trops: 0.1270, 0.1590, 0.1900 Ekg- abnormal -coreg 6.25 mg po bid -enalapril 15 mg po daily>> decreasing to 5 mg po daily -crestor 5 mg po hs -asa 81 mg po daily - on hold -Orthopedic consult placed to Dr. Segovia appreciated No surgical intervention at this time for facial trauma -pt had cardiac cath today with Dr. Dominguez -recommends continued medical management 2. Hx of atrial fibrillation -coreg 6.25 mg po bid -ekg- abnormal -echo- LVH, 70%EF, Mod-Severe pulmonary HTN -cardio eval. Dr. Benz. colmenares appreciated -may not need additional eliquis 3. wrist injury/fall -Orthopedic consult placed to Dr. Segovia appreciated -PT evaluation -Right hand xray- nondisplaced distal radius fx -MRI pending as per surgical team 4. anemia -Consult placed to Heme/Onc, Dr. Andrew Colmenares appreciated will check retic count, b12, folate, ferritin to further characterize likely chronic disease from malignancy -pt did have episode of rectal bleeding -Consult placed to Dr. Andrew colmenares appreciated 5. Prostate Cancer -Consult placed to Heme/Onc, Dr. [place]- Recs appreciated -castration resistant -LN and bone metastasis -on outpatient Zytiga; can continue to hold given debility -can restart once performance status improves. -Tamsulosin 0.4mg PO daily 6. GI/DVT ppx -scds -protonix 40 mg iv daily -crestor 5mg PO qd -PT eval for placement in rehab -miralax prn constipation Consult placed to Dr. Geeta Harvey at patient's request as this is his private doctor. Case discussed with Dr. Madsen All management as per Dr. Madsen
[2017-07-29] MEDS: POLYETHYLENE GLYCOL 3350 17 GM/Dose PACKET PO SCH (11:57)
--- NOTE | 2017-07-29 12:56 | CP.PCM.PN ---
Subjective - Date & Time of Evaluation Date of Evaluation: 07/29/17 Time of Evaluation: 12:54 - Subjective Subjective: PT STABLE. NO CP. NO SOB NO ACTIVE GI BLEEDING. HB 8.7 VS WNL. Objective - Vital Signs/Intake and Output Vital Signs (last 24 hours): Temp Pulse Resp BP Pulse Ox 98.1 F 74 18 129/76 96 07/29/17 07:30 07/29/17 07:31 07/29/17 07:30 07/29/17 11:22 07/29/17 07:30 Intake and Output: 07/29/17 07/29/17 06:59 18:59 Output Total 1850 Balance -1850 - Medications Medications: Current Medications Acetaminophen (Tylenol 325mg Tab) 650 mg PO Q6 PRN PRN Reason: Pain, moderate (4-7) Last Admin: 07/27/17 08:13 Dose: 650 mg Carvedilol (Coreg) 6.25 mg PO BID [facility] Last Admin: 07/29/17 11:23 Dose: 6.25 mg Enalapril Maleate (Vasotec) 5 mg PO DAILY [facility] Last Admin: 07/29/17 11:22 Dose: 5 mg Ferric Sodium Gluconate Complex (Ferrlecit) 125 mg IVPB DAILY [facility] Stop: 08/03/17 11:01 Last Admin: 07/29/17 11:28 Dose: 125 mg Pantoprazole Sodium (Protonix Ec Tab) 40 mg PO DAILY [facility] Last Admin: 07/29/17 11:22 Dose: 40 mg Polyethylene Glycol (Miralax) 17 gm PO DAILY [facility] Last Admin: 07/29/17 11:57 Dose: Not Given Potassium Chloride (Potassium Chloride Oral Soln) 20 meq PO DAILY [facility] Last Admin: 07/29/17 11:26 Dose: 20 meq Rosuvastatin Calcium (Crestor) 5 mg PO HS [facility] Last Admin: 07/28/17 21:56 Dose: 5 mg Tamsulosin HCl (Flomax) 0.4 mg PO DAILY [facility] Last Admin: 07/29/17 11:23 Dose: 0.4 mg - Labs Labs: 07/29/17 06:53 07/29/17 06:53 PT 12.6 SECONDS (9.7-12.2) H 07/28/17 07:04 INR 1.2 07/28/17 07:04 APTT 34 SECONDS (21-34) 07/28/17 07:04 - Constitutional Appears: No Acute Distress, Chronically Ill - Eye Exam Eye Exam: EOMI, Normal appearance, PERRL Pupil Exam: NORMAL ACCOMODATION, PERRL - ENT Exam ENT Exam: Mucous Membranes Moist, Normal Exam - Neck Exam Neck Exam: Full ROM, Normal Inspection. absent: Lymphadenopathy - Respiratory Exam Respiratory Exam: Clear to Ausculation Bilateral, NORMAL BREATHING PATTERN - Cardiovascular Exam Cardiovascular Exam: REGULAR RHYTHM, +S1, +S2. absent: Murmur - GI/Abdominal Exam GI & Abdominal Exam: Soft, Normal Bowel Sounds. absent: Tenderness - Extremities Exam Extremities Exam: Full ROM, Normal Capillary Refill, Normal Inspection. absent : Joint Swelling, Pedal Edema - Neurological Exam Neurological Exam: Alert, Awake, CN II-XII Intact, Normal Gait, Oriented x3 Assessment and Plan - Assessment and Plan (Free Text) Assessment: FALL CAD. A. FIB. CARDIAC CATH WNL. Plan: CT PRESENT TREATMENT. OK FOR LANEY.
[2017-07-29 15:51] VITALS: RESP 20
--- NOTE | 2017-07-29 17:34 | CP.PCM.PN ---
Subjective - Date & Time of Evaluation Date of Evaluation: 07/29/17 Time of Evaluation: 17:31 - Subjective Subjective: Patient denies having abdominal pain, nausea, vomiting, rectal bleeding and melena. He is tolerating the heart healthy diet. Objective - Vital Signs/Intake and Output Vital Signs (last 24 hours): Temp Pulse Resp BP Pulse Ox 98.5 F 73 20 101/58 L 95 07/29/17 15:05 07/29/17 16:00 07/29/17 15:05 07/29/17 15:05 07/29/17 15:05 Intake and Output: 07/29/17 07/29/17 06:59 18:59 Intake Total 500 Output Total 1850 Balance -1850 500 - Medications Medications: Current Medications Acetaminophen (Tylenol 325mg Tab) 650 mg PO Q6 PRN PRN Reason: Pain, moderate (4-7) Last Admin: 07/27/17 08:13 Dose: 650 mg Carvedilol (Coreg) 6.25 mg PO BID [facility] Last Admin: 07/29/17 11:23 Dose: 6.25 mg Enalapril Maleate (Vasotec) 5 mg PO DAILY [facility] Last Admin: 07/29/17 11:22 Dose: 5 mg Ferric Sodium Gluconate Complex (Ferrlecit) 125 mg IVPB DAILY [facility] Stop: 08/03/17 11:01 Last Admin: 07/29/17 11:28 Dose: 125 mg Pantoprazole Sodium (Protonix Ec Tab) 40 mg PO DAILY [facility] Last Admin: 07/29/17 11:22 Dose: 40 mg Polyethylene Glycol (Miralax) 17 gm PO DAILY [facility] Last Admin: 07/29/17 11:57 Dose: Not Given Potassium Chloride (Potassium Chloride Oral Soln) 20 meq PO DAILY [facility] Last Admin: 07/29/17 11:26 Dose: 20 meq Rosuvastatin Calcium (Crestor) 5 mg PO HS [facility] Last Admin: 07/28/17 21:56 Dose: 5 mg Tamsulosin HCl (Flomax) 0.4 mg PO DAILY [facility] Last Admin: 07/29/17 11:23 Dose: 0.4 mg - Labs Labs: 07/29/17 06:53 07/29/17 06:53 PT 12.6 SECONDS (9.7-12.2) H 07/28/17 07:04 INR 1.2 07/28/17 07:04 APTT 34 SECONDS (21-34) 07/28/17 07:04 - Constitutional Appears: No Acute Distress - Eye Exam Eye Exam: EOMI, PERRL - Neck Exam Neck Exam: absent: Lymphadenopathy, Thyromegaly - Respiratory Exam Respiratory Exam: NORMAL BREATHING PATTERN. absent: Rales, Rhonchi, Wheezes - Cardiovascular Exam Cardiovascular Exam: REGULAR RHYTHM, +S1, +S2. absent: Gallop, Rubs, Murmur - GI/Abdominal Exam GI & Abdominal Exam: Soft, Normal Bowel Sounds. absent: Tenderness, Mass, Organomegaly - Rectal Exam Rectal Exam: Deferred - Extremities Exam Extremities Exam: absent: Calf Tenderness, Pedal Edema Assessment and Plan (1) Hematochezia Assessment & Plan: Patient reports that he has not experienced any further bleeding. The HGB todat was 8.7, down from 9.6 yesterday. Will repeat the CBC. If the HGB remains stable, will plan for outpatient work-up. Status: Acute
--- NOTE | 2017-07-30 00:25 | CP.PCM.PN ---
Subjective - Date & Time of Evaluation Date of Evaluation: 07/30/17 Time of Evaluation: 13:00 - Subjective Subjective: No complaints, no bleeding. Objective - Vital Signs/Intake and Output Vital Signs (last 24 hours): Temp Pulse Resp BP Pulse Ox 98.5 F 76 20 93/57 L 95 07/29/17 15:05 07/29/17 17:48 07/29/17 15:05 07/29/17 17:48 07/29/17 15:05 Intake and Output: 07/29/17 07/30/17 18:59 06:59 Intake Total 500 500 Balance 500 500 - Medications Medications: Current Medications Acetaminophen (Tylenol 325mg Tab) 650 mg PO Q6 PRN PRN Reason: Pain, moderate (4-7) Last Admin: 07/27/17 08:13 Dose: 650 mg Carvedilol (Coreg) 6.25 mg PO BID [facility] Last Admin: 07/29/17 17:48 Dose: Not Given Enalapril Maleate (Vasotec) 5 mg PO DAILY [facility] Last Admin: 07/29/17 11:22 Dose: 5 mg Ferric Sodium Gluconate Complex (Ferrlecit) 125 mg IVPB DAILY [facility] Stop: 08/03/17 11:01 Last Admin: 07/29/17 11:28 Dose: 125 mg Pantoprazole Sodium (Protonix Ec Tab) 40 mg PO DAILY [facility] Last Admin: 07/29/17 11:22 Dose: 40 mg Polyethylene Glycol (Miralax) 17 gm PO DAILY [facility] Last Admin: 07/29/17 11:57 Dose: Not Given Potassium Chloride (Potassium Chloride Oral Soln) 20 meq PO DAILY [facility] Last Admin: 07/29/17 11:26 Dose: 20 meq Rosuvastatin Calcium (Crestor) 5 mg PO HS [facility] Last Admin: 07/29/17 22:44 Dose: 5 mg Tamsulosin HCl (Flomax) 0.4 mg PO DAILY [facility] Last Admin: 07/29/17 11:23 Dose: 0.4 mg - Labs Labs: 07/29/17 06:53 07/29/17 06:53 PT 12.6 SECONDS (9.7-12.2) H 07/28/17 07:04 INR 1.2 07/28/17 07:04 APTT 34 SECONDS (21-34) 07/28/17 07:04 - ENT Exam ENT Exam: Mucous Membranes Dry - Respiratory Exam Respiratory Exam: NORMAL BREATHING PATTERN - Cardiovascular Exam Cardiovascular Exam: +S1, +S2 - GI/Abdominal Exam GI & Abdominal Exam: Normal Bowel Sounds Assessment and Plan (1) Prostate cancer Assessment & Plan: stage IV, castrate resistant was on Zytiga, currently on hold for debility can restart once performance status improved Status: Acute (2) Anemia Assessment & Plan: chronic disease no further GI bleeding noting H/H slightly lower today Status: Acute
--- NOTE | 2017-07-30 07:17 | CP.PCM.PN ---
Subjective - Date & Time of Evaluation Date of Evaluation: 07/30/17 Time of Evaluation: 07:17 - Subjective Subjective: Progress Note for Dr. Madsen's Service Pt seen and examined at bedside. He is cleared for D/C pending placement to [facility]. His hgb is stable, no more bloody bowel movements. Objective - Vital Signs/Intake and Output Vital Signs (last 24 hours): Temp Pulse Resp BP Pulse Ox 97.5 F L 78 20 125/77 95 07/29/17 23:50 07/29/17 23:50 07/29/17 23:50 07/30/17 04:15 07/29/17 23:50 Intake and Output: 07/30/17 07/30/17 06:59 18:59 Intake Total 500 Output Total 900 Balance 500 -900 - Medications Medications: Current Medications Acetaminophen (Tylenol 325mg Tab) 650 mg PO Q6 PRN PRN Reason: Pain, moderate (4-7) Last Admin: 07/27/17 08:13 Dose: 650 mg Carvedilol (Coreg) 6.25 mg PO BID [facility] Last Admin: 07/29/17 17:48 Dose: Not Given Enalapril Maleate (Vasotec) 5 mg PO DAILY [facility] Last Admin: 07/29/17 11:22 Dose: 5 mg Ferric Sodium Gluconate Complex (Ferrlecit) 125 mg IVPB DAILY [facility] Stop: 08/03/17 11:01 Last Admin: 07/29/17 11:28 Dose: 125 mg Pantoprazole Sodium (Protonix Ec Tab) 40 mg PO DAILY [facility] Last Admin: 07/29/17 11:22 Dose: 40 mg Polyethylene Glycol (Miralax) 17 gm PO DAILY [facility] Last Admin: 07/29/17 11:57 Dose: Not Given Potassium Chloride (Potassium Chloride Oral Soln) 20 meq PO DAILY [facility] Last Admin: 07/29/17 11:26 Dose: 20 meq Rosuvastatin Calcium (Crestor) 5 mg PO HS [facility] Last Admin: 07/29/17 22:44 Dose: 5 mg Tamsulosin HCl (Flomax) 0.4 mg PO DAILY [facility] Last Admin: 07/29/17 11:23 Dose: 0.4 mg - Labs Labs: 07/29/17 06:53 07/29/17 06:53 PT 12.6 SECONDS (9.7-12.2) H 07/28/17 07:04 INR 1.2 07/28/17 07:04 APTT 34 SECONDS (21-34) 07/28/17 07:04 - Head Exam Additional comments: trauma with extensive bruising/lacerations - Eye Exam Eye Exam: EOMI - ENT Exam ENT Exam: Mucous Membranes Moist - Respiratory Exam Respiratory Exam: Clear to Ausculation Bilateral, NORMAL BREATHING PATTERN - Cardiovascular Exam Cardiovascular Exam: +S1, +S2 - GI/Abdominal Exam GI & Abdominal Exam: Soft. absent: Tenderness - Neurological Exam Neurological Exam: Alert, Awake, Oriented x3 - Psychiatric Exam Psychiatric exam: Normal Affect, Normal Mood - Skin Skin Exam: Dry, Warm Assessment and Plan - Assessment and Plan (Free Text) Plan: Cleared for D/C to [facility] as per Dr. Madsen. Hemoglobin is stable. Will need outpatient follow up with Mikel Karimi Patel, Tena and Nicole. 1. Rectal bleed- resolved -Consult placed to Dr. Brown- outpatient colonoscopy to follow -holding anticoagulation -no more rectal bleeding today 2. Fall/Syncope with extensive head and neck trauma -NSTEMI suspected due to elevated tropinins-cardiology consult placed to Dr. Benz. colmenares appreciated. Trops: 0.1270, 0.1590, 0.1900 Ekg- abnormal -coreg 6.25 mg po bid -enalapril 15 mg po daily>> decreasing to 5 mg po daily -crestor 5 mg po hs -asa 81 mg po daily - on hold -Orthopedic consult placed to Dr. Segovia appreciated No surgical intervention at this time for facial trauma -pt had cardiac cath with Dr. Dominguez- no interventions -recommends continued medical management 2. Hx of atrial fibrillation -coreg 6.25 mg po bid -ekg- abnormal -echo- LVH, 70%EF, Mod-Severe pulmonary HTN -cardio eval. Dr. Benz. colmenares appreciated -may not need additional eliquis 3. wrist injury/fall -Orthopedic consult placed to Dr. Segovia appreciated -PT evaluation -Right hand xray- nondisplaced distal radius fx 4. anemia -Consult placed to Heme/Onc, Dr. Morin- Laura appreciated will check retic count, b12, folate, ferritin to further characterize likely chronic disease from malignancy -pt did have episode of rectal bleeding -Consult placed to Dr. Andrew colmenares appreciated 5. Prostate Cancer -Consult placed to Heme/Onc, Dr. Andrew Colmenares appreciated -castration resistant -LN and bone metastasis -on outpatient Zytiga; can continue to hold given debility -can restart once performance status improves. -Tamsulosin 0.4mg PO daily 6. GI/DVT ppx -scds -protonix 40 mg iv daily -crestor 5mg PO qd -PT eval for placement in rehab -miralax prn constipation Consult placed to Dr. Geeta Harvey at patient's request as this is his private doctor. Case discussed with Dr. Madsen All management as per Dr. Madsen
[2017-07-30 07:51] VITALS: PULSE 69; TEMP 97.8; O2SAT 96
[2017-07-30 10:44] LABS: BASO # 0.1 K/uL (0.0-0.2); EOS # 0.6 K/uL (0.0-0.7); EOS % 7.8 % (0.0-4.0); LYMPH # 1.3 K/uL (1.0-4.3); LYMPH % 17.7 % (20.0-40.0); MEAN CELL VOLUME 90.4 fL (80.0-94.0); MEAN CORPUSCULAR HEMOGLOBIN 31.4 pg (27.0-31.0); MEAN CORPUSCULAR HGB CONC 34.8 g/dL (33.0-37.0); MEAN PLATELET VOLUME 7.2 fL (7.2-11.7); MONO # 0.7 K/uL (0.0-0.8); MONO % 9.9 % (0.0-10.0); NEUT # 4.7 K/uL (1.8-7.0); NEUT % 63.6 % (50.0-75.0); RBC 2.85 Mil/uL (4.40-5.90); RED CELL DISTRIBUTION WIDTH 14.6 % (11.5-14.5); WHITE BLOOD COUNT 7.4 K/uL (4.8-10.8)
[2017-07-30 10:59] LABS: ALB/GLOB RATIO 1.2 (1.0-2.1); ALT/SGPT 35 U/L (21-72); AST/SGOT 41 U/L (17-59); BLOOD UREA NITROGEN 21 mg/dL (9-20); CALCIUM 8.5 mg/dl (8.6-10.4); GFR AFRICAN-AMERICAN > 60; GFR NON-AFRICAN AMERICAN > 60
[2017-07-30] MEDS: Potassium Chloride 20 mEq/15 ml LIQ UD PO SCH (11:30)
[2017-07-30] MEDS: Pantoprazole 40 mg EC Tab PO SCH (11:30)
[2017-07-30] MEDS: Ferric Sodium Gluconat Complex 62.5 mg/5 ml Vial IVPB SCH (11:30)
[2017-07-30 11:32] VITALS: BP 120/58
--- NOTE | 2017-07-30 12:53 | CP.PCM.PN ---
Subjective - Date & Time of Evaluation Date of Evaluation: 07/30/17 Time of Evaluation: 12:51 - Subjective Subjective: cardiac condition stable. no cp. no sob. no active bleeding. Objective - Vital Signs/Intake and Output Vital Signs (last 24 hours): Temp Pulse Resp BP Pulse Ox 97.8 F 69 20 120/58 L 96 07/30/17 07:30 07/30/17 07:30 07/30/17 07:30 07/30/17 11:30 07/30/17 07:30 Intake and Output: 07/30/17 07/30/17 06:59 18:59 Intake Total 500 Output Total 900 Balance 500 -900 - Medications Medications: Current Medications Acetaminophen (Tylenol 325mg Tab) 650 mg PO Q6 PRN PRN Reason: Pain, moderate (4-7) Last Admin: 07/30/17 11:36 Dose: 650 mg Carvedilol (Coreg) 6.25 mg PO BID [facility] Last Admin: 07/30/17 11:30 Dose: 6.25 mg Enalapril Maleate (Vasotec) 5 mg PO DAILY [facility] Last Admin: 07/30/17 11:30 Dose: 5 mg Ferric Sodium Gluconate Complex (Ferrlecit) 125 mg IVPB DAILY [facility] Stop: 08/03/17 11:01 Last Admin: 07/30/17 11:30 Dose: 125 mg Pantoprazole Sodium (Protonix Ec Tab) 40 mg PO DAILY [facility] Last Admin: 07/30/17 11:30 Dose: 40 mg Polyethylene Glycol (Miralax) 17 gm PO DAILY [facility] Last Admin: 07/29/17 11:57 Dose: Not Given Potassium Chloride (Potassium Chloride Oral Soln) 20 meq PO DAILY [facility] Last Admin: 07/30/17 11:30 Dose: 20 meq Rosuvastatin Calcium (Crestor) 5 mg PO HS [facility] Last Admin: 07/29/17 22:44 Dose: 5 mg Tamsulosin HCl (Flomax) 0.4 mg PO DAILY [facility] Last Admin: 07/30/17 11:30 Dose: 0.4 mg - Labs Labs: 07/30/17 10:39 07/30/17 10:39 PT 12.6 SECONDS (9.7-12.2) H 07/28/17 07:04 INR 1.2 07/28/17 07:04 APTT 34 SECONDS (21-34) 07/28/17 07:04 - Constitutional Appears: No Acute Distress, Chronically Ill - Head Exam Head Exam: ATRAUMATIC, NORMAL INSPECTION, NORMOCEPHALIC - Eye Exam Eye Exam: EOMI, Normal appearance, PERRL Pupil Exam: NORMAL ACCOMODATION, PERRL - ENT Exam ENT Exam: Mucous Membranes Moist, Normal Exam - Neck Exam Neck Exam: Full ROM, Normal Inspection. absent: Lymphadenopathy - Respiratory Exam Respiratory Exam: Clear to Ausculation Bilateral, NORMAL BREATHING PATTERN - Cardiovascular Exam Cardiovascular Exam: REGULAR RHYTHM, +S1, +S2. absent: Murmur - GI/Abdominal Exam GI & Abdominal Exam: Soft, Normal Bowel Sounds. absent: Tenderness - Extremities Exam Extremities Exam: Full ROM, Normal Capillary Refill, Normal Inspection. absent : Joint Swelling, Pedal Edema - Back Exam Back Exam: NORMAL INSPECTION - Neurological Exam Neurological Exam: Alert, Awake, CN II-XII Intact, Normal Gait, Oriented x3 Assessment and Plan - Assessment and Plan (Free Text) Assessment: same. anemia. Plan: ok for denise. ct all meds.
[2017-07-30] MEDS: POLYETHYLENE GLYCOL 3350 17 GM/Dose PACKET PO SCH (13:24)
--- NOTE | 2017-07-31 09:15 | CARDCATH ---
PROCEDURE DATE: 07/28/2017 PROCEDURES: 1. Left heart catheterization. 2. Coronary angiogram. REFERRING PHYSICIAN: Elton Madsen MD PERFORMING PHYSICIAN: Kael Dominguez MD CLINICAL INDICATIONS: 1. . 2. [id number] myocardial infarction. 3. Coronary artery disease. 4. Hypertension. 5. Atrial fibrillation. 6. History of GI bleeding. PROCEDURE: After informed consent, the patient was prepped and draped in the usual sterile fashion. A 2% lidocaine was given in the right groin for local anesthesia. Using micropuncture technique, a 6-Italian sheath was introduced into the right common femoral artery. A JL4 6-Italian diagnostic catheter engaged into left main coronary artery. Contrast injected and left coronary angiogram was done. Then JR4 6-Italian diagnostic catheter crossed into the left ventricle across the aortic valve. LV end-diastolic pressure was measured. Contrast injected and LV angiogram was done. Then the catheter was pulled back across the aortic valve. Gradient across the aortic valve was measured. Then the same catheter was engaged into the right coronary artery. Contrast injected and right coronary angiogram was done. The patient tolerated the procedure well. FINDINGS: 1. Left main coronary artery is patent. 2. LAD and diagonal branches are patent. 3. Distal left circumflex has a 60% to 70% stenosis. Obtuse marginal branches are patent. 4. Right coronary artery is dominant and patent. 5. LV ejection fraction is approximately 60%. No wall motion abnormalities noted. EDP is 15. No gradient across the aortic valve. IMPRESSION: 1. Nonobstructive coronaries. 2. Normal left ventricular systolic function. RECOMMENDATIONS: Recommend medical management for now. Kael Dominguez MD
--- NOTE | 2017-08-11 11:25 | DS ---
The patient was admitted to the hospital with chief complaint of fall, dizziness. The patient placed on bed rest, supportive care. The patient showed gradual improvement, the patient was discharged, to be followed up as outpatient. Elton Madsen MD
== END 2017-07-30 14:19 | DRG 563 ==
LOC: C.ER 11:29 → C.9E 16:06 → C.6T 22:16
PROVIDERS: ADMIT Internal Medicine Pulmonary Disease; ATTEND Internal Medicine Pulmonary Disease
PROC: 4A023N7 Measurement of Cardiac Sampling and Pressure, Left Heart, Percutaneous Approach (ICD-10-PCS; principal; 2017-07-28)
PROC: B201YZZ Plain Radiography of Multiple Coronary Arteries using Other Contrast (ICD-10-PCS; 2017-07-28)
PROC: B205YZZ Plain Radiography of Left Heart using Other Contrast (ICD-10-PCS; 2017-07-28)
DX: S52.501A Unspecified fracture of the lower end of right radius, initial encounter for closed fracture (principal); C79.51 Secondary malignant neoplasm of bone; D62 Acute posthemorrhagic anemia; C77.9 Secondary and unspecified malignant neoplasm of lymph node, unspecified; K92.1 Melena; C61 Malignant neoplasm of prostate; E78.00 Pure hypercholesterolemia, unspecified; E86.0 Dehydration; D69.6 Thrombocytopenia, unspecified; I10 Essential (primary) hypertension; I48.91 Unspecified atrial fibrillation; I25.10 Atherosclerotic heart disease of native coronary artery without angina pectoris; M81.0 Age-related osteoporosis without current pathological fracture; S60.511A Abrasion of right hand, initial encounter; D63.0 Anemia in neoplastic disease; R55 Syncope and collapse; T45.515A Adverse effect of anticoagulants, initial encounter; H11.32 Conjunctival hemorrhage, left eye; I27.20 Pulmonary hypertension, unspecified; N40.0 Benign prostatic hyperplasia without lower urinary tract symptoms; R53.81 Other malaise; W18.30XA Fall on same level, unspecified, initial encounter; Z53.09 Procedure and treatment not carried out because of other contraindication

== ENCOUNTER 2018-06-17 15:16 | Outpatient (CLI) | payer MEDICARE, BC | END 2018-06-17 15:17 | disposition home or self-care (01) | LOC: C.DEXAIC 15:16 | DX: M81.0 Age-related osteoporosis without current pathological fracture (principal) ==